=== PATIENT | female | born 1965 | race Caucasian/White ===

== ENCOUNTER 2017-02-21 01:50 | Inpatient (IN) | payer OTHER ==
--- NOTE | ~2017-02-21 | DS ---
Unit #: [id number] #: [id number] Patient: SUHAS YOUNGBLOOD [id number] [address] [place], [place] [address] [id number] MR#: [id number] NAME: SUHAS YOUNGBLOOD ROOM: 228 Age: 51 Sex: F Admission Date: 02/21/2017 : 1965 Discharge Date: 02/27/2017 Attending Physician: Hemalatha Nichols M.D. Primary Care Physician: No Primary Care Physician DISCHARGE SUMMARY ADMISSION DIAGNOSES Diabetic ketoacidosis with abdominal pain and possible hepatic abscess. DISCHARGE DIAGNOSES 1. Diabetic ketoacidosis, resolved. 2. Insulin dependent diabetes mellitus, uncontrolled. 3. Acute respiratory failure, resolved. 4. Chronic obstructive pulmonary disease, resolved. 5. Hepatic lesion secondary to focal steatosis on focal steatosis as per biopsy. 6. Acute right upper extremity internal jugular subclavian and axillary DVT. 7. Chronic pain syndrome. CONSULTANTS Dr. Juarez in surgical consultation. Dr. Coleman in pulmonary consultation. Dr. Flor in infectious disease consultation. Dr. Warren Brian in hematology consultation. DIAGNOSTIC DATA LABORATORY: The patient had a creatinine of 0.7, sodium 139, potassium 4.0. White blood cell count 7.1, hemoglobin 10.4, platelets 223. Blood cultures did not reveal any growth. Sputum culture and sensitivity revealed normal respiratory valeria. Liver biopsy revealed (1) steatosis. IMAGING: Right upper extremity venous Doppler positive for extensive DVT with right internal jugular subclavian and axillary vein. The patient also has right basilic vein thrombophlebitis. CT scan of the abdomen done with and without contrast, which revealed ill-defined hypodense area within the liver which is unchanged in size and appearance. HOSPITAL COURSE The patient is a 51-year-old female who presented to [facility] and was treated for diabetic ketoacidosis. Details are as per admission history and physical. Diabetic ketoacidosis: The patient was treated in the intensive care unit with diabetic ketoacidosis protocol. She responded well and diabetic ketoacidosis has resolved. Unit #: [id number] #: [id number] Patient: SUHAS YOUNGBLOOD Hypodense area in the liver: The patient was seen by infectious disease in consultation. Initially there was concern of hepatic abscess. The patient had a biopsy done, which revealed focal steatosis. Therefore, infectious disease has discontinued antibiotics. Acute right upper extremity DVT: The patient was seen by Dr. Brian in consultation, who has recommended to start her on Eliquis. The patient will require a total of three months of Eliquis. A PICC line was attempted on the right upper extremity. She has a history of DVT one year ago secondary to PICC line as well. Acute respiratory failure: The patient was seen by pulmonary in consultation. They have recommended she can go home. DISCHARGE CONDITOIN Stable. ACTIVITY As tolerated. DISCHARGE MEDICATIONS 1. Dulera 2 puffs b.i.d. 2. Albuterol 2 puffs q.4 h. p.r.n. shortness of air. 3. Cymbalta 60 mg p.o. daily. 4. Zocor 40 mg p.o. at nighttime. 5. Levemir 40 units subcutaneous q.a.m. 6. NovoLog 10 units subcutaneous b.i.d. with meals. 7. Singulair 10 mg p.o. at nighttime. 8. Lortab 7.5 mg p.o. q.4 h. p.r.n. pain, which is the patient's home medication. 9. Potassium 20 mEq p.o. daily. 10. Eliquis 10 mg p.o. b.i.d. for 1 week. Then 5 mg p.o. b.i.d. for 3 months. FOLLOWUP 1. The patient is advised to follow up with primary care physician in one week and have a CBC and BMP done. 2. The patient is advised to follow up with hematology and pulmonary as recommended. 3. The patient was advised to have Accu-Cheks morning and evening and call primary care physician if less than 80 or greater than 350. The plan was discussed in detail with the patient, who showed complete understanding. She was advised to call primary care physician or go to the emergency room if her condition changes. Dictated by... Supa Foster TD: 02/27/2017 12:05 JOB #: [id number] Unit #: [id number] #: [id number] Patient: SUHAS YOUNGBLOOD CC: Kurtis Matthew M.D. Peterson Solis M.D. Ernst Flor M.D. Warren Brian M.D., Ph.D. DISCHARGE SUMMARY Page 1 of 1 X Hemalatha Nichols MD DISCHARGE SUMMARY
--- NOTE | ~2017-02-21 | CT4 ---
[facility] A Service of [facility] & [facility] RADIOLOGY TEXT RESULTS PATIENT: SUHAS YOUNGBLOOD LOCATION: [address] : [birth year] UNIT #: [id number] AGE: [address]: Rob Cardona MD SEX: F ORDER DR: [id number] [facility] [address] [facility]. [place], [place] [address] [id number] I MR#: [id number] Acc #: [id number] NAME: SUHAS YOUNGBLOOD : 1965 SEX: F STUDY DATE/TIME: 02/21/2017 4:15 UNIT: [facility] ROOM: [facility] STUDY DESCRIPTION: CT Abd and Pelv Wo Cont Attending Physician: Rob Cardona M.D. Ordering Physician: Tracy Villegas M.D. MEDICAL IMAGING REPORT This report is preliminary unless electronic signature is present EXAM CT abdomen and pelvis INDICATIONS Nausea, vomiting, and diarrhea for 2 days. Generalized abdominal pain and weakness. TECHNIQUE CT abdomen and pelvis without contrast. Coronal and sagittal reconstructions were obtained. This CT exam was performed with one or more of the following radiation dose reduction techniques: automatic exposure control, adjustment of mA and/or kV according to patient size, and iterative reconstruction. COMPARISON CT abdomen and pelvis dated 11/23/2015 and 07/09/2016. FINDINGS ABDOMEN: There is a new hypodense mass in the inferior aspect of the right hepatic lobe. The mass measures 7.2 x 3.5 x 4 cm. There is some associated capsular retraction. This involves segment 5 and 6 of the liver. No additional liver lesions are identified. Gallbladder is surgically absent. The pancreas, spleen, and adrenal glands are within normal limits. 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 This previously measured 3.2 cm. There are some renal cysts. Largest cyst is off the lower pole left kidney measuring 5.3 cm. No hydronephrosis. The bowel is not dilated. There is no focal inflammatory change in the bowel. The appendix is normal. There is occasional colonic diverticulosis. No evidence of acute diverticulitis. [facility] A Service of [facility] & [facility] RADIOLOGY TEXT RESULTS PATIENT: SUHAS YOUNGBLOOD LOCATION: [facility]- : [birth year] UNIT #: [id number] AGE: [address]: Rob Cardona MD SEX: F ORDER DR: The abdominal aorta is normal in caliber. PELVIS: No pelvic mass. Uterus and ovaries are within normal limits. Bladder is unremarkable. No enlarged pelvic or inguinal lymph nodes. No acute osseous abnormalities. IMPRESSION 1. Development of a new large hypodense mass in the inferior right hepatic lobe. This measures up to 7.2 cm. Given the very rapid development, an hepatic abscess is considered the most likely etiology. A hepatic malignancy or mass is less likely given the time interval of development. In addition, there is some mild fat inflammation adjacent to the capsule of the right side of the liver. Consider a multiphase CT or MRI using the hepatic protocol to further characterize. 2. 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 3. Occasional diverticulosis. No evidence of acute diverticulitis on this study. Dictated by... Carl Quispe M.D. THIS IS AN ELECTRONICALLY VERIFIED REPORT Carl Quispe M.D. at 02/21/2017 9:07 PM [place] TD: 02/21/2017 11:10 JOB #: [id number] MEDICAL IMAGING REPORT Page 1 of 1 COPY
--- NOTE | ~2017-02-21 | CO ---
Unit #: [id number] #: [id number] Patient: SUHAS YOUNGBLOOD [id number] [address] [place], [place] [address] [id number] I MR#: [id number] NAME: SUHAS YOUNGBLOOD ROOM: 228 Age: 51 Sex: F Admission Date: 02/21/2017 : 1965 Attending Physician: Hemalatha Nichols M.D. Primary Care Physician: Primary Care Physician No Consultation Date: 02/22/2017 CONSULTATION REPORT REQUESTING PHYSICIAN . REASON FOR CONSULTATION Possible liver abscess. HISTORY OF PRESENT ILLNESS This is a 51-year-old, white female, with history of diabetes, COPD, chronic pain syndrome, hyperlipidemia, who was admitted for ketoacidosis, presenting symptoms included nausea and vomiting, some abdominal discomfort, but there was never fever or significant leukocytosis. CT scan showed possible 7 cm hepatic lesion thought to be abscess or malignancy. She was started on vancomycin and Zosyn. ID was consulted for further evaluation. IR has attempted to drain this abscess, but they were not successful, they are thinking that this is possibly a solid mass and not an abscess and a repeat CT scan has been scheduled for Monday. The patient does not have any fever, chills, hypotension, or signs of systemic sepsis. Cultures are negative and she is tolerating antibiotics very well. PAST MEDICAL HISTORY Insulin-dependent diabetes for a long time with peripheral neuropathy, hyperlipidemia, COPD, chronic back pain, depression, hyperlipidemia, previous diskectomy, laparoscopic cholecystectomy, bladder repair and bilateral tubal ligation. ALLERGIES Sulfa, erythromycin, and Demerol. HOME MEDICATIONS Reviewed. She was on Levemir, albuterol, Symbicort, Cymbalta, Remeron, Zocor, fenofibrate, Singulair, and Lyrica. In the hospital she is on insulin drip, IV fluids. Her antibiotics include vancomycin and Zosyn. FAMILY HISTORY Positive for coronary artery disease. SOCIAL HISTORY She is . She lives with her daughter. She smokes cigarettes, but denies any alcohol or drug use. SYSTEMIC REVIEW Nausea, vomiting, diarrhea, mild abdominal discomfort, cough. There is no headache, mental status changes, hypotension, tachycardia, rigors, Unit #: [id number] #: [id number] Patient: SUHAS YOUNGBLOOD dysuria, diarrhea, or skin rashes. PHYSICAL EXAMINATION GENERAL: Reveals young white female, who is awake and alert, in no acute distress. VITAL SIGNS: Stable. Temperature is 98, pulse 90, respirations 16, blood pressure 160/82. She has no rash. There is no edema, sats are 100%. Oral hygiene is adequate. LUNGS: Clear to percussion and auscultation. HEART: Sounds normal. There are no murmurs. ABDOMEN: Soft and nontender. There is no rebound or guarding. Bowel sounds normal. NEUROLOGIC: Nonfocal. CENTRAL NERVOUS SYSTEM: Unremarkable. DIAGNOSTIC STUDIES LABORATORY RESULTS: Urinalysis shows 25 wbc's, glucosuria, and leukocyte esterase. The patient has absolutely no symptoms UTI. Amylase and lipase are normal. Hemoglobin A1c is 12. CT of chest x-ray shows no acute infiltrates. CT of the abdomen and pelvis is concerning for hypodense mass in the inferior right hepatic lobe, thought to be hepatic abscess or malignancy. Her sodium is 134, potassium 3.1, chloride 110, CO2 of 18, BUN 7, creatinine 0.9. Liver function tests are normal. Albumin is 2.5. White count is 10.5, hemoglobin 10.4, platelets 254, without any left shift. A repeat CT scan done today, shows the same low attenuation area within the right hepatic lobe. There is no evidence of any enhancement and it either may not be a mass lesion. There is no discrete drainable abscess seen. IMPRESSION Main issue is diabetic ketoacidosis, questionable liver mass does not appear to be an abscess since the patient does not have any fever, chills, signs of systemic sepsis, or leukocytosis. It may be a solid mass or may be a focal steatosis. Recommendation, I agree with current antibiotic regimen until clear diagnosis is made. I will strongly recommend interventional radiology drainage or biopsy to confirm the diagnosis. Further recommendation will follow at that time. Dictated by... Supa Martinez TD: 02/28/2017 11:56 JOB #: [id number] CONSULTATION REPORT Page 1 of 1 X Ernst Flor MD CONSULTATION REPORT
--- NOTE | ~2017-02-21 | CO ---
Unit #: [id number] #: [id number] Patient: SUHAS SOARES [id number] [address] [place], [place] [address] [id number] MR#: [id number] NAME: SUHAS SOARES ROOM: 228 Age: 51 Sex: F Admission Date: 02/21/2017 : 1965 Attending Physician: Hemalatha Nichols M.D. CONSULTATION REPORT REASON FOR CONSULTATION Right upper extremity DVT. HISTORY OF PRESENT ILLNESS Ms. Soares is a very pleasant 51-year-old lady with insulin-dependent diabetes and COPD. She was admitted to the hospital with diabetic ketoacidosis. On the CT scan of the abdomen, she was found to have a hypodense lesion in the liver, which was concerning for abscess versus malignancy. The patient underwent a CT-guided biopsy and it was negative both for infection and malignancy. It was felt to be a focal fatty infiltrative lesion. The patient has been treated with insulin and antibiotics. The attempt was made to place a PICC line in her right upper extremity, which has been now complicated by swelling and pain. On ultrasound evaluation, she was found to have occlusive deep venous thrombosis in the subclavian-axillary veins. The patient has previous history of DVT in the same arm about 2 years ago in a similar situation after an IV placement. The patient was treated with Xarelto anticoagulation for a period of 2 to 3 months. She developed hair loss and then stop taking the medication. PAST MEDICAL HISTORY Insulin-dependent diabetes since age 24, hyperlipidemia, COPD, chronic back and neck pain, depression, hyperlipidemia, diskectomy, history of bladder repair, laparoscopic cholecystectomy. ALLERGIES Sulfa, erythromycin, and Demerol. MEDICATIONS At home; Levemir, NovoLog, albuterol, Symbicort, Cymbalta, Remeron, Zocor, fenofibrate, Singulair, Lortab, Lyrica. FAMILY HISTORY Heart disease. SOCIAL HISTORY The patient lives with her fiance and daughter. She smokes 1 pack per day of tobacco. She has now cut down the number of cigarettes. Does not drink alcohol. REVIEW OF SYSTEMS CONSTITUTIONAL: Patient denies fevers, chills, sweats, and weight changes. EYES: Patient denies any visual symptoms. Unit #: [id number] #: [id number] Patient: SUHAS SOARES EARS, NOSE, AND THROAT: No difficulties with hearing. No symptoms of rhinitis or sore throat. CARDIOVASCULAR: Patient denies chest pains, palpitations, orthopnea, or paroxysmal nocturnal dyspnea. RESPIRATORY: No dyspnea on exertion, no wheezing or cough. GASTROINTESTINAL: No nausea, vomiting, diarrhea, constipation, abdominal pain, hematochezia or melena. GENITOURINARY: No urinary hesitancy or dribbling. No nocturia or urinary frequency. No abnormal urethral discharge. MUSCULOSKELETAL: No myalgias or arthralgias. NEUROLOGIC: No chronic headaches, no seizures. Patient denies numbness, tingling or weakness. PSYCHIATRIC: Patient denies problems with mood disturbance. No problems with anxiety. ENDOCRINE: No excessive urination or excessive thirst. DERMATOLOGIC: Patient denies any rashes or skin changes. ALLERGIC/IMMUNOLOGIC: Denies any symptoms. HEMATOLOGIC/LYMPHATIC: Denies any symptoms. EXTREMITIES: Pain of the right upper extremity and swelling due to DVT. PHYSICAL EXAMINATION GENERAL: Patient appears well developed, well nourished, and healthy. Personality: Pleasant and cooperative. Mental status: Alert and oriented. Stature: ECOG performance score 0. VITAL SIGNS: Patient is afebrile and normotensive. Normal saturation on room air. HEENT: Examination of head, eyes, ears, nose and throat is unremarkable. HEMATOLOGIC/LYMPHATIC: There is no palpable adenopathy in the inguinal, axillary or cervical areas. CARDIOVASCULAR: S1 and S2 regular. Normal rate without any murmurs or gallops. RESPIRATORY: Chest symmetrical, normal, breath sounds equal, bilaterally symmetrical. No rales or rhonchi, and no dullness to percussion. ABDOMEN/GASTROINTESTINAL: Abdomen is soft, nontender, and without palpable masses. No hepatosplenomegaly. EXTREMITIES: Peripheral pulses are normal. There is no edema, cyanosis, clubbing or significant varicosities. NEUROLOGICAL: Patient is alert and oriented x3. Cranial nerves II-XII are grossly intact. Motor strength is 5/5 and equal in all four extremities. Deep tendon reflexes are +2/4 and equal bilaterally. MUSCULOSKELETAL: No evidence of joint swelling, bone tenderness or muscle tenderness is appreciable. SKIN: No lesions or rashes. PSYCHIATRIC: No delusions or hallucinations, no loose associations, no flight of ideas, no tangentiality. Affect is appropriate. No psychomotor slowing or agitation. Eye contact is appropriate. DIAGNOSTIC STUDIES IMAGING STUDIES: Ultrasound Doppler is positive for occlusive thrombosis of internal jugular, axillary, and subclavian veins. DISCUSSION AND DECISION-MAKING Ms. 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 The patient has a similar history in the past about 2 years ago; because of which, she was maintained on anticoagulation with Xarelto. Currently, she is on Lovenox at therapeutic dose, which is quite appropriate. She is requesting a pain medication. I am going to give her Unit #: [id number] #: [id number] Patient: SUHAS SOARES Lortab 10 every 4 to 6 hours as needed for pain. After the symptoms have improved, she could be transitioned to oral anticoagulant with Eliquis. She will be taking 10 mg p.o. b.i.d. for the first 1 week and then changed to 5 mg b.i.d. for a total period of about 3 months. It was discussed with the patient that she should not have any further vascular procedure on the right upper extremity given her history. Dictated by... Warren Brian M.D., Ph.D. BRISA/erin TD: 02/26/2017 22:40 JOB #: [id number] CONSULTATION REPORT Page 1 of 1 X X CONSULTATION REPORT
--- NOTE | ~2017-02-21 | CO ---
Unit #: [id number] #: [id number] Patient: SUHAS YOUNGBLOOD [id number] [address] [place], [place] [address] [id number] MR#: [id number] NAME: SUHAS YOUNGLBOOD. ROOM: [facility] Age: 51 Sex: F Admission Date: 02/21/2017 : 1965 Attending Physician: Rob Cardona M.D. CONSULTATION REPORT HISTORY OF PRESENT ILLNESS This is a 51-year-old lady, she has history of diabetes mellitus, presented with abdominal pain and shortness of breath. The patient found to be in diabetic ketoacidosis. The patient was admitted to intensive care unit, which had a DKA; however, there appears to be a new infiltrate abscess/mass of the liver, 7.2 cm in greatest dimension. The patient states that she has had about 3 weeks of increasing right upper abdomen pain, nausea, and vomiting while at home. Previous laparoscopic cholecystectomy. No other sick contacts. The patient is also coughing a little bit with a little bit of shortness of breath, but nothing is really productive. REVIEW OF SYSTEMS As per the history of present illness, otherwise is negative. PAST MEDICAL HISTORY Significant for insulin-dependent diabetes mellitus, peripheral neuropathy, hyperlipidemia, chronic obstructive pulmonary disease, diskectomy at L4-L5, depression, bladder suspension, laparoscopic cholecystectomy, bilateral tubal ligation. ALLERGIES The patient is allergic to sulfa, erythromycin, and Demerol. HOME MEDICATIONS Includes simvastatin 40 mg as needed, potassium chloride ER 20 mEq as needed, mirtazapine 30 mg at bedtime as needed, montelukast sodium 10 mg scheduled daily, Cymbalta 60 mg daily, Ventolin one puff inhaled daily, Symbicort 160/4.5 two puffs inhaled b.i.d. as needed, hydrocodone/acetaminophen 7.5/325 tablets daily, Levemir 20 units subcu daily as needed, NovoLog 8 units subcu t.i.d. as needed. FAMILY HISTORY Significant for heart disease. The patient lives at home with family. Continues to smoke. No alcohol or recreational drug use. No occupational exposures. PHYSICAL EXAMINATION VITAL SIGNS: Temperature is 97.4, pulse 103, respiratory rate 18, blood pressure 125/56. GENERAL: The patient is awake, sleeping quietly, in no respiratory distress. HEENT: Head is normocephalic and atraumatic. Pupils are equally round Unit #: [id number] #: [id number] Patient: SUHAS YOUNGBLOOD and reactive to light. Extraocular movements are intact. NECK: Shows no accessory muscle use. CHEST: Shows decreased breath sounds bilaterally. CARDIOVASCULAR: Regular rate. No gallop. ABDOMEN: Soft, nontender, and nondistended. EXTREMITIES: Shows no evidence of edema. DIAGNOSTIC STUDIES LABORATORY RESULTS: ABG; pH 7.29, pCO2 21, and pO2 of 54 on room air. BUN and creatinine 10/1.1, bicarb 13, potassium 3.3, the initial glucose was 689. ASSESSMENT AND PLAN 1. Diabetes. 2. Diabetic ketoacidosis. The patient is being treated with diabetic ketoacidosis protocol. Continue hydration. We will see if IR can do a CT-guided biopsy of the liver mass. 3. Possible pneumonia. The patient does not have a significant infiltrate on chest x-ray. She is on appropriate antibiotics, which should cover pneumonia as well. We will do a nebulizer treatment. Thank you very much. Please page me at [phone] if you have any questions. Dictated by... Supa Crowell/erin TD: 02/23/2017 02:14 JOB #: [id number] CONSULTATION REPORT Page 1 of 1 X Naman Coleman MD X CONSULTATION REPORT
--- NOTE | ~2017-02-21 | CT5 ---
[facility] A Service of [facility] RADIOLOGY TEXT RESULTS PATIENT: SUHAS YOUNGBLOOD LOCATION: [address] : [birth year] UNIT #: [id number] AGE: [address]: Rob Cardona MD SEX: F ORDER DR: [id number] [facility] [address] [facility] [address]. [place], [place] [address] [id number] I MR#: [id number] Acc #: [id number] NAME: SUHAS YOUNGBLOOD : 1965 SEX: F STUDY DATE/TIME: 02/22/2017 8:26 UNIT: [facility] ROOM: [facility] STUDY DESCRIPTION: CT Abdomen W Cont Attending Physician: Rob Cardona M.D. Ordering Physician: Uriel Juarez M.D. Primary Care Physician: Primary Care Physician No MEDICAL IMAGING REPORT This report is preliminary unless electronic signature is present EXAM Multiphase liver CT INDICATIONS Abnormal CT of the abdomen and pelvis which was performed yesterday for nausea, vomiting, diarrhea and generalized abdominal pain since February 20, 2017. This demonstrated a low attenuation area within the right hepatic lobe measuring 7.2 x 3.4 cm which was considered to be suspicious for hepatic abscess. This exam was requested for additional characterization. TECHNIQUE Axial arterial and portal venous phase imaging was performed through the liver followed by venous phase imaging through the abdomen and pelvis and 5-minute delayed-phase imaging through the abdomen pelvis. This CT exam was performed with one or more of the following radiation dose reduction techniques: automatic exposure control, adjustment of mA and/or kV according to patient size, and iterative reconstruction. FINDINGS Images through the lung bases show the development of some interval, the dependent atelectasis when compared to the prior study from yesterday. Patient is again noted to have an area of heterogeneous low attenuation within the right hepatic lobe. This remains low attenuation on all sequences. I really do not see any enhancing elements to suggest that this is a mass, but I also do not see any discrete drainable fluid collections. There is some capsular retraction seen on today's study which is new when compared to the prior exam as the possibility of a mass lesion is not completely excluded. There is also some stranding seen along the right hepatic margin as was previously discussed. Again this appearance can be seen in both neoplastic and infectious or inflammatory processes. No adenopathy is seen within the abdomen. There is no ascites. Gallbladder is surgically absent. Stomach and proximal small bowel are within normal limits, as are the adrenal glands and pancreas. This patient has a large [facility] A Service of [facility] RADIOLOGY TEXT RESULTS PATIENT: SUHAS YOUNGBLOOD LOCATION: [facility] CICCU2-07 : [birth year] UNIT #: [id number] AGE: [address]: Rob Cardona MD SEX: F ORDER DR: cyst arising from the inferior pole of the right kidney and there is also an angiomyolipoma arising from the superior pole of the left kidney. This has increased in size over time, previously measuring 3.2 cm in transverse dimensions and is now 3.8 cm in an AP dimension; this now measures up to 4.1 cm. Urologic consultation is suggested. There is a small fat-containing umbilical hernia. Visualized portions of the uterus and urinary bladder appear unremarkable. This patient has colonic diverticulosis without any convincing evidence of diverticulitis on today's study. The appendix is visualized and is within normal limits. No discrete drainable fluid collections are seen within the abdomen. Review of bony windows does not demonstrate any aggressive osseous abnormalities. Patient is noted to have hepatomegaly with the liver measuring up to 19.5 cm in craniocaudal dimensions. IMPRESSION 1. Previously identified low attenuation area within the right hepatic lobe is again seen. It really does not show any significant areas of enhancement on any of the sequences. This would argue against any mass lesion, however no discrete drainable abscess is seen. I still favor that this may reflect developing abscess, but again it is not drainable at the current time. There is some capsular retraction noted on today's study which is new when compared to July 2016 which would be more suggestive of a neoplastic process and again underlying mass lesion is not excluded. Short-term followup exam is recommended preferably a single phase contrast enhanced exam. Interval decrease in the size of this area or development of fluid collections within this area would confirm that this is benign. No adenopathy or ascites is seen within the abdomen. 2. Hepatomegaly. 3. This patient has an enlarging angiomyolipoma arising from the superior pole of the left kidney. In maximum dimensions this measures up to 4.1 cm. Again it has increased in size when compared to the exam from July 2016. Urologic consultation is suggested. 4. Large inferior pole right renal cyst. 5. Changes of prior cholecystectomy. 6. Colonic diverticulosis without evidence of diverticulitis. Dictated by... Zunilda Blanco M.D. THIS IS AN ELECTRONICALLY VERIFIED REPORT Zunilda Blanco M.D. at 02/22/2017 4:55 PM AFF/to TD: 02/22/2017 13:47 JOB #: [id number] MEDICAL IMAGING REPORT [facility] A Service of [facility] & [facility] RADIOLOGY TEXT RESULTS PATIENT: SUHAS YOUNGBLOOD LOCATION: [address] : [birth year] UNIT #: [id number] AGE: [address]: Rob Cardona MD SEX: F ORDER DR: Page 1 of 1 COPY
--- NOTE | ~2017-02-21 | A ---
[facility] Nutrition Therapy DATE: 02/22/17 Patient: SUHAS YOUNGBLOOD Physician: CLAUDIA Address: [address] Room/Bed: [address], Zip: [place] [address] Admit Date: 02/21/17 Date of : [birth year] Height: 5 10 Weight: 211 96 NUTRITIONAL ASSESSMENT: REASON: NO DIET ORDER IN ICU + DX PT IS 51 Y.O. FEMALE ADMITTED FOR ABD PAIN, DKA PMH: DM SINCE AGE 24 (PER CHART), CVA, SMOKER, COPD, PERIPHERAL NEUROPATHY, PREVIOUS DKA, HTN, DYSLIPIDEMIA Anthropometrics: 5'10", WT: 220# (PER PT) (100 KG), BMI: 31.6, 150# IBW, 147%IBW Labs: GLU: 115, BUN: 7, CA+:7.6, ALB: 2.5, K+:3.1, NA+:134, M.5, PHOS: 2.0, A1c: 12.2 (REFLECTS POOR GLUCOSE MANAGEMENT), AMYLASE: 13 Meds: IV FLUIDS, NACL, ZOFRAN, PEPCID, MAG SULFATE, KCL, REGLAN I/O & Bowel function: 2507/1203, 3 BMs NOTED Skin Integrity: NO KNOWN SKIN ISSUES Estimated Nutrition Needs: INCREASED NEEDS 2' CURRENT CONDITION, UNINTENTIONAL WEIGHT LOSS NOTED Assessment: CHART REVIEWED AND EVENTS NOTED. PT SEEN FOR NO DIET ORDER IN ICU + DX. PT REPORTS DECREASED PO INTAKE 2' DECREASED APPETITE PAST SEVERAL DAYS. PT ADDS "APPETITE GOES UP AND DOWN". PT REPORTS LOSING ~40# SINCE LAST JULY 2016/15% WEIGHT LOSS IN PAST [address] ENCOURAGED SLOW GRADUAL PO INTAKE ONCE DIET ADVANCES, PT AGREED. RD ALSO PROVIDED WRITTEN AND VERBAL CC DIET EDUCATION. PT REPORTS MAKING HEALTHIER CHANGES (BAKED CHICKEN, SALADS AND DRINKING MORE WATER). PT DEMONSTRATED UNDERSTANDING OF THE TOPIC. PT REPORTED NO DIET QUESTIONS AT THIS TIME. RD TO FOLLOW. SEE RECOMMENDATIONS BELOW. OF NOTE, NO DIET ORDER 2' PROCEDURE SCHEDULED TODAY. PLANS IN PLACE TO ADVANCE DIET LATER TODAY. Dx: INADEQUATE PROTEIN-ENERGY INTAKE R/T PMH, DECREASED APPETITE AEB PT REPORT ABOVE. -IMPAIRED GYMCEMIC CONTROL R/T DX, PMH AEB ELEVATED BLOOD SUGAR LEVELS, A1c OF 12.2. Intervention: 1. NO DIET ORDER 2. RD PROVIDED DIET EDUCATION Monitoring, Evaluation and Goals: 1. ORAL INTAKE; ADVANCE DIET AND CONSUME >50% OF MEALS W/NO C/O N/V/D 2. WEIGHTS; PREVENT FURTHER UNINTENTIONAL WEIGHT LOSS; PROMOTE GRADUAL WEIGHT LOSS [facility] Nutrition Therapy DATE: 02/22/17 Patient: SUHAS YOUNGBLOOD Physician: CLAUDIA Address: [address] [place] [address] Room/Bed: [address], Zip: [place] [address] Admit Date: 02/21/17 Date of : [birth year] Height: 5 10 Weight: 211 96 3. LABS; WNL: GLU, LYTES (K+, PHOS, MG) MONITOR: -DIET ADVANCEMENT -PO INTAKE/APPETITE -LABS -EDUCATION NEEDS Recommendations: 1. ONCE MEDICALLY FEASIBLE, ADVANCE DIET TOLERATED TO CC 2' PMH, DX 2. PLEASE ORDER STRAWBERRY OR VANILLA GLUCERNA SHAKES BID W/MEALS ONCE DIET ADVANCES 3. ENCOURAGE ADEQUATE PO INTAKE 4. CONSULT RD IF FURTHER DIET EDUCATION REQUESTED RD WILL F/U PER PROTOCOL PT IS MODERATELY COMPROMISED Respectfully, JACY BRUNO MS, RD, LD [employer] and Nutrition[employer] Services [facility] cc: client file
--- NOTE | ~2017-02-21 | CT6 ---
[facility] A Service of [facility] RADIOLOGY TEXT RESULTS PATIENT: SUHAS YOUNGBLOOD LOCATION: [facility] 228-01 : [birth year] UNIT #: [id number] AGE: [address]: Hemalatha Nichols MD SEX: F ORDER DR: [id number] [place], [place] [address] [id number] I MR#: [id number] Acc #: [id number] NAME: SUHAS YOUNGBLOOD : 1965 SEX: F STUDY DATE/TIME: 02/24/2017 10:31 UNIT: [facility] ROOM: [facility] STUDY DESCRIPTION: CT Abdomen WWo Cont Attending Physician: Hemalatha Nichols M.D. Ordering Physician: Marii Brian M.D. Primary Care Physician: Primary Care Physician No MEDICAL IMAGING REPORT This report is preliminary unless electronic signature is present EXAM CT of the abdomen without and with contrast INDICATION Follow up liver lesion. TECHNIQUE CT of the abdomen was performed before and after the administration of IV contrast. Coronal and sagittal reformatted images were obtained. Comparison is made with 02/22/2017. This CT examination was performed with one or more of the following radiation dose reduction techniques: automatic exposure control, adjustment of mA and/or kV according to patient size, and iterative reconstruction. FINDINGS There is minimal atelectasis within the lung bases. Redemonstrated within the periphery of the right lobe of the liver is an ill-defined hypodensity associated with some capsular retraction. Overall it is unchanged in size and appearance. Again differential diagnosis includes developing abscess versus possible underlying mass. Cholecystectomy. Focal fatty infiltration of the liver adjacent to the falciform. The spleen is unremarkable. Stable angiomyolipoma within the left kidney. Stable cyst in the right kidney. The adrenal glands are unremarkable. The pancreas is unremarkable. Bone windows are unremarkable. IMPRESSION There has been no change since the previous study. The ill-defined hypodense area within the liver is unchanged in size and appearance. Again differential diagnosis includes developing abscess versus underlying mass. Dictated by... [facility] A Service of [facility] RADIOLOGY TEXT RESULTS PATIENT: SUHAS YOUNGBLOOD LOCATION: [facility] [address] : [birth year] UNIT #: [id number] AGE: [address]: Hemalatha Nichols MD SEX: F ORDER DR: Teo De La Cruz M.D. THIS IS AN ELECTRONICALLY VERIFIED REPORT Teo De La Cruz M.D. at 02/25/2017 9:47 AM TERESA/jorge TD: 02/24/2017 14:19 JOB #: [id number] MEDICAL IMAGING REPORT Page 1 of 1 COPY
--- NOTE | ~2017-02-21 | DS ---
Unit #: [id number] #: [id number] Patient: SUHAS YOUNGBLOOD [id number] [address] [place], [place] [address] [id number] I MR#: [id number] NAME: SUHAS YOUNGBLOOD. ROOM: 228 Age: 51 Sex: F Admission Date: 02/21/2017 : 1965 Discharge Date: 02/27/2017 Attending Physician: Hemalatha Nichols M.D. Primary Care Physician: No Primary Care Physician DISCHARGE SUMMARY ADDENDUM ADMISSION DIAGNOSES Diabetic ketoacidosis with abdominal pain and possible hepatic abscess. DISCHARGE DIAGNOSES 1. Diabetic ketoacidosis, resolved. 2. Insulin dependent diabetes mellitus, uncontrolled. 3. Acute respiratory failure, resolved. 4. Chronic obstructive pulmonary disease, resolved. 5. Hepatic lesion secondary to focal steatosis on focal steatosis as per biopsy. 6. Acute right upper extremity internal jugular subclavian and axillary DVT. 7. Chronic pain syndrome. CONSULTANTS Dr. Juarez in surgical consultation. Dr. Coleman in pulmonary consultation. Dr. Flor in infectious disease consultation. Dr. Warren Brian in hematology consultation. DIAGNOSTIC DATA LABORATORY: The patient had a creatinine of 0.7, sodium 139, potassium 4.0. White blood cell count 7.1, hemoglobin 10.4, platelets 223. Blood cultures did not reveal any growth. Sputum culture and sensitivity revealed normal respiratory valeria. Liver biopsy revealed (1) steatosis. IMAGING: Right upper extremity venous Doppler positive for extensive DVT with right internal jugular subclavian and axillary vein. The patient also has right basilic vein thrombophlebitis. CT scan of the abdomen done with and without contrast, which revealed ill-defined hypodense area within the liver which is unchanged in size and appearance. HOSPITAL COURSE The patient is a 51-year-old female who presented to [facility] and was treated for diabetic ketoacidosis. Details are as per admission history and physical. Diabetic ketoacidosis: The patient was treated in the intensive care unit Unit #: [id number] #: [id number] Patient: SUHAS YOUNGBLOOD with diabetic ketoacidosis protocol. She responded well and diabetic ketoacidosis has resolved. Hypodense area in the liver: The patient was seen by infectious disease in consultation. Initially there was concern of hepatic abscess. The patient had a biopsy done, which revealed focal steatosis. Therefore, infectious disease has discontinued antibiotics. Acute right upper extremity DVT: The patient was seen by Dr. Brian in consultation, who has recommended to start her on Eliquis. The patient will require a total of three months of Eliquis. A PICC line was attempted on the right upper extremity. She has a history of DVT one year ago secondary to PICC line as well. Acute respiratory failure: The patient was seen by pulmonary in consultation. They have recommended she can go home. DISCHARGE CONDITOIN Stable. ACTIVITY As tolerated. DISCHARGE MEDICATIONS 1. Dulera 2 puffs b.i.d. 2. Albuterol 2 puffs q.4 h. p.r.n. shortness of air. 3. Cymbalta 60 mg p.o. daily. 4. Zocor 40 mg p.o. at nighttime. 5. Levemir 40 units subcutaneous q.a.m. 6. NovoLog 10 units subcutaneous b.i.d. with meals. 7. Singulair 10 mg p.o. at nighttime. 8. Lortab 7.5 mg p.o. q.4 h. p.r.n. pain, which is the patient's home medication. 9. Potassium 20 mEq p.o. daily. 10. Eliquis 10 mg p.o. b.i.d. for 1 week. Then 5 mg p.o. b.i.d. for 3 months. FOLLOWUP 1. The patient is advised to follow up with primary care physician in one week and have a CBC and BMP done. 2. The patient is advised to follow up with hematology and pulmonary as recommended. 3. The patient was advised to have Accu-Cheks morning and evening and call primary care physician if less than 80 or greater than 350. The plan was discussed in detail with the patient, who showed complete understanding. She was advised to call primary care physician or go to the emergency room if her condition changes. Dictated by... Supa Foster TD: 02/27/2017 12:05 JOB #: [id number] Unit #: [id number] #: [id number] Patient: SUHAS YOUNGBLOOD ADDENDUM I discussed with the patient in detail, who stated that she was taking Levemir 60 units at home and 30 units of NovoLog with each meal. As the patient's sugars are currently low I will decrease her Levemir to 50 units and will continue on the NovoLog as the patient is very adamant to continue 30 units with each meal. She states that she was not watching her diet at home, but she will watch it better, and she will do her Accu-Cheks as directed. The patient does not want to have a diabetic ketoacidosis again. The patient was advised to call her primary care physician or go to the emergency room if her condition changes. Dictated by... Supa Foster/atul TD: 02/27/2017 12:28 JOB #: [id number] CC: Supa Sanders M.D. Khuda D. Khan, M.D., Ph.D. Peterson Solis M.D. Gayatri/invision Please Delete DISCHARGE SUMMARY Page 1 of 1 X Hemalatha Nichols MD X DISCHARGE SUMMARY
--- NOTE | ~2017-02-21 | CR72 ---
[facility] A Service of [facility] RADIOLOGY TEXT RESULTS PATIENT: SUHAS YOUNGBLOOD LOCATION: [address] : [birth year] UNIT #: [id number] AGE: [address]: Rob Cardona MD SEX: F ORDER DR: [id number] [facility] [address] [facility]. [place], [place] [address] [id number] I MR#: [id number] Acc #: [id number] NAME: SUHAS YOUNGBLOOD : 1965 SEX: F STUDY DATE/TIME: 02/22/2017 4:20 UNIT: [facility] ROOM: [facility] STUDY DESCRIPTION: CR Chest Single View Portable Attending Physician: Rob Cardona M.D. Ordering Physician: Astrid Coleman M.D. Primary Care Physician: Primary Care Physician No MEDICAL IMAGING REPORT This report is preliminary unless electronic signature is present EXAM Single view chest INDICATION Respiratory failure. 2-day duration. FINDINGS Single portable AP view of the chest compared to 02/21/2017. Left PICC terminates over the SVC. Heart and mediastinal contours normal. Lungs are clear. IMPRESSION Left PICC terminates over the SVC. Dictated by... Carl Quispe M.D. THIS IS AN ELECTRONICALLY VERIFIED REPORT Carl Quispe M.D. at 02/22/2017 11:21 PM OREN/jorge TD: 02/22/2017 06:03 JOB #: [id number] MEDICAL IMAGING REPORT Page 1 of 1 COPY
--- NOTE | ~2017-02-21 | CR72 ---
[facility] A Service of [facility] & [facility] RADIOLOGY TEXT RESULTS PATIENT: SUHAS YOUNGBLOOD LOCATION: [address] : [birth year] UNIT #: [id number] AGE: [address]: Rob Cardona MD SEX: F ORDER DR: [id number] [facility] [address] [place], [place] [address] [id number] I MR#: [id number] Acc #: [id number] NAME: SUHAS YOUNGBLOOD : 1965 SEX: F STUDY DATE/TIME: 02/21/2017 3:24 UNIT: [facility] ROOM: [facility] STUDY DESCRIPTION: CR Chest Single View Portable Attending Physician: Rob Cardona M.D. Ordering Physician: Tracy Villegas M.D. Primary Care Physician: Primary Care Physician No MEDICAL IMAGING REPORT This report is preliminary unless electronic signature is present EXAM Single view of the chest INDICATIONS Shortness of air for two days. FINDINGS Single portable AP view of the chest compared to 07/23/2016. Heart and mediastinal contours are normal. Lungs are clear. IMPRESSION Negative chest radiograph. Dictated by... Carl Quispe M.D. THIS IS AN ELECTRONICALLY VERIFIED REPORT Carl Quispe M.D. at 02/21/2017 9:07 PM OREN/nai TD: 02/21/2017 06:09 JOB #: [id number] MEDICAL IMAGING REPORT Page 1 of 1 COPY
--- NOTE | ~2017-02-21 | CT134 ---
[facility] A Service of [facility] RADIOLOGY TEXT RESULTS PATIENT: SUHAS YOUNGBLOOD LOCATION: [facility] : [birth year] UNIT #: [id number] AGE: [address]: Hemalatha Nichols MD SEX: F ORDER DR: [id number] [facility]. [place], [place] [address] [id number] I MR#: [id number] Acc #: [id number] NAME: SUHAS YOUNGBLOOD. : 1965 SEX: F STUDY DATE/TIME: 02/24/2017 12:31 UNIT: [facility] ROOM: [facility] STUDY DESCRIPTION: CT Guide Attending Physician: Hemalatha Nichols M.D. Ordering Physician: Raymond Rutledge M.D. MEDICAL IMAGING REPORT This report is preliminary unless electronic signature is present EXAM CT-guided liver biopsy INDICATIONS Abnormal hypodense lesion within the liver which is suspicious for either abscess or possible mass. Medications, 3 mg Versed IV and 100 mcg of fentanyl IV were administered. Conscious sedation time of 35 minutes was monitored by appropriately credentialed radiology nursing staff. The risks, benefits, and alternatives of the procedure were discussed with the patient and informed consent was obtained. In the procedure room, a time out was performed confirming correct patient and procedure. All elements of maximum sterile-barrier technique utilized according to guidelines appropriate for the procedure. TECHNIQUE/FINDINGS CT scan was performed demonstrating the ill-defined hypodense area within the periphery of the right lobe of the liver with capsular retraction. The overlying skin was prepped and draped in the usual sterile fashion. 1% lidocaine utilized to anesthetize the skin and underlying subcutaneous tissues. Next under CT guidance, a 17-gauge guide needle was advanced into the hypodense area. There was not returned of any purulent fluid. Therefore, two 18-gauge core biopsies were obtained and sent to pathology. Needle was removed and a sterile dressing was applied. The tract was dressed with Gelfoam during removal of the needle. IMPRESSION Technically successful CT-guided liver lesion biopsy. [facility] A Service of [facility] RADIOLOGY TEXT RESULTS PATIENT: SUHSA YOUNGBLOOD LOCATION: [facility] 228-01 : [birth year] UNIT #: [id number] AGE: [address]: Hemalatha Nichols MD SEX: F ORDER DR: Dictated by... Teo De La Cruz M.D. THIS IS AN ELECTRONICALLY VERIFIED REPORT Teo De La Cruz M.D. at 02/25/2017 9:48 AM ARS/pcl TD: 02/24/2017 20:49 JOB #: [id number] MEDICAL IMAGING REPORT Page 1 of 1 COPY
--- NOTE | ~2017-02-21 | XA166 ---
[facility] A Service of [facility] & [facility] RADIOLOGY TEXT RESULTS PATIENT: SUHAS YOUNGBLOOD LOCATION: [address] : [birth year] UNIT #: [id number] AGE: [address]: Rob Cardona MD SEX: F ORDER DR: [id number] [facility] [address] [place], [place] [address] [id number] I MR#: [id number] Acc #: [id number] NAME: SUHAS YOUNGBLOOD : 1965 SEX: F STUDY DATE/TIME: 02/21/2017 13:19 UNIT: [facility] ROOM: [facility] STUDY DESCRIPTION: XA PICC Line Placement WO Port Attending Physician: Rob Cardona M.D. Ordering Physician: Emma Palm M.D. Primary Care Physician: Primary Care Physician No MEDICAL IMAGING REPORT This report is preliminary unless electronic signature is present PROCEDURE Attempted right arm PICC line placement and successful left arm PICC line placement. INDICATION 51-year-old female who is in diabetic ketoacidosis and needs central access. The fluoro time was 5.8 minutes. The reference air kerma was 19 mGy. Risks, benefits and alternatives of the procedure were discussed with the patient and informed consent was obtained. In the procedure room a timeout was performed confirming correct patient and procedure. All elements of maximum sterile-barrier technique utilized according guidelines appropriate for the procedure. TECHNIQUE/FINDINGS Ultrasound of the right extremity was performed. The basilic vein was patent and compressible and images saved. Next, using full standard sterile-barrier technique including sterile caps, gowns, gloves, masks, drapes, 2% Chlorhexidine for cutaneous antisepsis, and hand hygiene, real-time sterile ultrasound guidance was utilized with sterile gel and sterile prep, and the right basilic vein was accessed using an 21-gauge micropuncture needle. Through this access and under fluoroscopic guidance a sheath was advanced into the right basilic vein. Next a guidewire was manipulated centrally however, I was unable to advance the guidewire into the SVC likely due to chronic occlusion. I attempted this with both an 0.18 guidewire and with an 0.35 stiff Glidewire and guide catheter. Patient did report that she has had multiple right upper extremity PICC lines in the past. Therefore, the guidewire, catheter, and sheath were removed from the right basilic vein and hemostasis was achieved with manual pressure. [facility] A Service of [facility] RADIOLOGY TEXT RESULTS PATIENT: SUHAS YOUNGBLOOD LOCATION: [facility]2-07 : [birth year] UNIT #: [id number] AGE: [address]: Rob Cardona MD SEX: F ORDER DR: Next, attention was turned left upper extremity. Ultrasound was performed and the left basilic vein was patent and compressible and image was saved. Next, using full standard sterile barrier technique including sterile caps, gowns, gloves, masks, drapes, 2% Chlorhexidine for cutaneous antisepsis and hand hygiene, real-time sterile ultrasound guidance was utilized with sterile gel and sterile probe cover and the left basilic vein was punctured using a 21-gauge micropuncture needle. Through this access and under fluoroscopic guidance, an 0.18 guidewire was advanced into the SVC. The needle was exchanged for a peel-away sheath. The PICC line was measured and cut to length and was advanced over the sheath. Sheath was peeled away. Final spot image was taken demonstrating good position of the PICC line within the lower SVC. This is a 46 cm double-lumen 5-Faroese left arm PICC line. The patient tolerated the procedure well without immediate complications. IMPRESSION 1. 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 Attempted right arm PICC line placement was unsuccessful. 2. Successful left arm PICC line placement as described. 3. If the patient needs PICC lines in the future, suggest using the left upper extremity. Dictated by... Teo De La Cruz M.D. THIS IS AN ELECTRONICALLY VERIFIED REPORT Teo De La Cruz M.D. at 02/22/2017 7:45 AM TERESA/juan carlos TD: 02/21/2017 22:12 JOB #: [id number] MEDICAL IMAGING REPORT Page 1 of 1 COPY
--- NOTE | ~2017-02-21 | US140 ---
[facility] A Service of [facility] & [facility] RADIOLOGY TEXT RESULTS PATIENT: SUHAS YOUNGBLOOD LOCATION: [facility] 228-01 : [birth year] UNIT #: [id number] AGE: [address]: Hemalatha Nichols MD SEX: F ORDER DR: [id number] [facility] [address] [place], [place] [address] [id number] I MR#: [id number] Acc #: [id number] NAME: SUHAS YOUNGBLOOD : 1965 SEX: F STUDY DATE/TIME: 02/25/2017 15:54 UNIT: [facility] ROOM: [facility] STUDY DESCRIPTION: US UE Veins Unilat or Ltd Stdy Attending Physician: Hemalatha Nichols M.D. Ordering Physician: Diana Mckenzie M.D. MEDICAL IMAGING REPORT This report is preliminary unless electronic signature is present EXAM Right upper extremity venous duplex, 02/25/2017 HISTORY Right upper extremity pain and swelling for 1 day with history of previous deep vein thrombosis. FINDINGS Ferrell-scale images of the right upper extremity were obtained as well as Doppler waveform spectral analysis and color flow Doppler imaging. The examination is abnormal demonstrating occlusive thrombus in the right internal jugular vein as well as right subclavian and axillary veins. Normal blood flow and compressibility is seen in the right brachial and cephalic veins. There is occlusive thrombus in the right basilic vein characteristic of superficial thrombophlebitis. IMPRESSION 1. Abnormal examination demonstrating occlusive deep vein thrombosis in the right internal jugular vein, right subclavian vein and right axillary vein. 2. Occlusive thrombus in the right basilic vein characteristic of superficial thrombophlebitis. STAT * RESULT Dictated by... Roosevelt Knowles M.D. THIS IS AN ELECTRONICALLY VERIFIED REPORT Roosevelt Knowles M.D. at 02/26/2017 2:11 PM DARRYL/sammy TD: 02/25/2017 16:39 [facility] A Service of [facility] & [facility] RADIOLOGY TEXT RESULTS PATIENT: SUHAS YOUNGBLOOD [id number] [birth year] UNIT #: [id number] AGE: [address]: Hemalatha Nichols MD SEX: F ORDER DR: JOB #: [id number] MEDICAL IMAGING REPORT Page 1 of 1 COPY
--- NOTE | ~2017-02-21 | CO ---
Unit #: [id number] #: [id number] Patient: SUHAS SOARSE 911655 [address] [place], [place] [address] [id number] I MR#: [id number] NAME: SUHAS SOARES. ROOM: [facility] Age: 51 Sex: F Admission Date: 02/21/2017 : 1965 Attending Physician: Rob Cardona M.D. Consultation Date: 02/21/2017 CONSULTATION REPORT HISTORY OF PRESENT ILLNESS Ms. Soares is a 51-year-old female with diabetes who presented to the emergency room with abdominal pain and shortness of breath. She was found to be in diabetic ketoacidosis, and she was admitted to the intensive care unit. The medical service is reversing her DKA, but on CT scan, there is a new mass in the liver measuring 7.2 cm in greatest dimension in the right lobe consistent with possible hepatic abscess. The patient states that she has had about three weeks of increasing right upper quadrant pain associated with nausea and vomiting while at home. She has had a previous laparoscopic cholecystectomy. PAST MEDICAL HISTORY 1. Insulin-dependent diabetes. 2. Peripheral neuropathy. 3. Hyperlipidemia. 4. Chronic obstructive pulmonary disease. 5. Diskectomy at L4-5. 6. Depression. 7. Bladder suspension. 8. Laparoscopic cholecystectomy. 9. Bilateral tubal ligation. ALLERGIES Sulfa, erythromycin, and Demerol. HOME MEDICATIONS 1. Levemir. 2. NovoLog. 3. Albuterol. 4. Symbicort. 5. Cymbalta. 6. Remeron. 7. Zocor. 8. Fenofibrate. 9. Singulair. 10. Lortab. 11. Lyrica. FAMILY HISTORY Heart disease. SOCIAL HISTORY Lives at home with family. She continues to smoke. Denies use of alcohol or recreational drugs. Unit #: [id number] #: [id number] Patient: SUHAS SOARES REVIEW OF SYSTEMS Nausea and vomiting but no hematemesis, hematochezia, melena, abdominal pain, fever, or chills. PHYSICAL EXAMINATION VITAL SIGNS: Temperature is 97.4, pulse 103, respirations 18, and blood pressure 125/56. GENERAL: She is awake, alert, and oriented. HEENT: Unremarkable. CARDIAC: Regular. LUNGS: Clear. ABDOMEN: She guards in the right upper quadrant. EXTREMITIES: No edema. NEUROLOGIC: Grossly intact. DIAGNOSTIC STUDIES LABORATORY: Most recent blood gas showed a pH of 7.29, PCO2 of 21, and PO2 of 54, and that was on room air. Chemistry showed a glucose of 689, BUN and creatinine 9 and 1, sodium 129, potassium 6, chloride 108, CO2 of 13, calcium 7, phosphorus 1.9, and magnesium 1.8. Amylase and lipase normal. Liver chemistries unremarkable. Beta hydroxybutyrate 7.54. Hemoglobin A1c 12.2. White count 9900, hemoglobin 13.2, and platelets 337,000. Urinalysis shows 25-50 white cells. IMAGING: CT scan shows a new mass consistent with abscess measuring 7.2 cm in greatest dimension. She has an enlarging left renal angiomyolipoma and diverticulosis without evidence of diverticulitis. ASSESSMENT AND PLAN A 51-year-old female presents in diabetic ketoacidosis. She had a CT consistent with a possible hepatic abscess. Patient is in the intensive care unit being hydrated and having her diabetic ketoacidosis resolved. However, she does have a lesion consistent with possible abscess. It appears amenable to percutaneous drainage, and we will ask Interventional Radiology to place a drain and send the fluid for culture and sensitivity. Should she fail to respond to percutaneous drainage, surgical drainage is always a possibility. Dictated by... Supa Torres/paul TD: 02/21/2017 19:44 JOB #: [id number] CONSULTATION REPORT Page 1 of 1 X Uriel Juarez MD X CONSULTATION REPORT
--- NOTE | ~2017-02-21 | CR63 ---
[facility] A Service of [facility] & [facility] RADIOLOGY TEXT RESULTS PATIENT: SUHAS YOUNGBLOOD LOCATION: [facility] 228 : [birth year] UNIT #: [id number] AGE: [address]: Hemalatha Nichols MD SEX: F ORDER DR: [id number] [facility] [address] [place], [place] [address] [id number] I MR#: [id number] Acc #: [id number] NAME: SUHAS YOUNGBLOOD : 1965 SEX: F STUDY DATE/TIME: 02/27/2017 8:47 UNIT: A ROOM: [facility] STUDY DESCRIPTION: CR Chest 2 View Attending Physician: Hemalatha Nichols M.D. Ordering Physician: Hemalatha Nichols M.D. Primary Care Physician: Primary Care Physician No MEDICAL IMAGING REPORT This report is preliminary unless electronic signature is present EXAM PA and lateral chest INDICATIONS Shortness of breath since 02/21 COMPARISON 02/25/2017 FINDINGS The right perihilar opacity has resolved. No new infiltrates. PICC line is stable. IMPRESSION Previously noted right perihilar opacity has resolved. No new infiltrate. Dictated by... Teo De La Cruz M.D. THIS IS AN ELECTRONICALLY VERIFIED REPORT Teo De La Cruz M.D. at 03/01/2017 7:48 AM TERESA/adeline TD: 02/27/2017 14:00 JOB #: [id number] MEDICAL IMAGING REPORT Page 1 of 1 COPY
--- NOTE | ~2017-02-21 | CR72 ---
[facility] A Service of [facility] & [facility] & [facility] RADIOLOGY TEXT RESULTS PATIENT: SUHAS YOUNGBLOOD LOCATION: A : [birth year] UNIT #: [id number] AGE: [address]: Hemalatha Nichols MD SEX: F ORDER DR: [id number] [facility] [address]. [place], [place] [address] [id number] I MR#: [id number] Acc #: [id number] NAME: SUHAS YOUNGBLOOD : 1965 SEX: F STUDY DATE/TIME: 02/25/2017 6:16 UNIT: [facility] ROOM: [facility] STUDY DESCRIPTION: CR Chest Single View Portable Attending Physician: Hemalatha Nichols M.D. Ordering Physician: Astrid Coleman M.D. Primary Care Physician: No Primary Care Physician MEDICAL IMAGING REPORT This report is preliminary unless electronic signature is present EXAM Portable AP view of chest COMPARISON February 22, 2017, February 21, 2017, July 23, 2016. INDICATION 51-year-old female with respiratory failure, dyspnea, nausea, emesis and diarrhea for 5 days. FINDINGS AND IMPRESSION Left arm PICC terminates in the SVC. Lung volumes are diminished from comparison study with minimal increased opacities in the right lung base most consistent with atelectasis. There are also mild increased interstitial opacities in the right upper lobe which may be accentuated by overlapping ribs. This may reflect atelectasis but developing pneumonia cannot be excluded. No evidence of pneumothorax or pleural effusion. Cardiomediastinal silhouette is within normal limits. There are also apparent increased opacities in the left upper lobe emanating from the hilum, possibly reflecting atelectasis. Pneumonia not excluded. Dictated by... Irving Marcano M.D. THIS IS AN ELECTRONICALLY VERIFIED REPORT Irving Marcano M.D. at 03/04/2017 1:51 PM BLM/maurilio TD: 02/25/2017 10:52 JOB #: [id number] [facility] A Service of [facility] & [facility] & [facility] RADIOLOGY TEXT RESULTS PATIENT: SUHAS YOUNGBLOOD LOCATION: [facility] 228-01 : [birth year] UNIT #: [id number] AGE: [address]: Hemalatha Nichols MD SEX: F ORDER DR: MEDICAL IMAGING REPORT Page 1 of 1 COPY
--- NOTE | ~2017-02-21 | EKG ---
PATIENT: SUHAS YOUNGBLOOD UNIT #: [id number] Ventricular Rate: 105 BPM Atrial Rate: 105 BPM P-R Interval: 160 ms QRS Duration: 66 ms Q-T Interval: 348 ms QTC Calculation(Bezet): 459 ms P Diana: 36 degrees Calculated R Diana: -18 degrees Calculated T Diana: -4 degrees Diagnosis Line: Sinus tachycardia Diagnosis Line: Inferior infarct , age undetermined Diagnosis Line: Anteroseptal infarct (cited on or before Diagnosis Line: 23-JUL-2016) Diagnosis Line: Abnormal ECG Diagnosis Line: When compared with ECG of 23-JUL-2016 09:38, Diagnosis Line: Inferior infarct is now Present Diagnosis Line: Questionable change in initial forces of Anterior Diagnosis Line: leads Diagnosis Line: Confirmed by TREASURE SAM MD ([id number]) on Diagnosis Line: 02/22/2017 8:46:41 AM INTERPRETING MD: CECY ARREDONDO
--- NOTE | ~2017-02-21 | HP ---
Unit #: [id number] #: [id number] Patient: SUHAS YOUNGBLOOD 182700 [address] [place], [place] [address] [id number] I MR#: [id number] NAME: SUHAS YOUNGBLOOD. ROOM: 59613 Age: 51 Sex: F Admission Date: 02/21/2017 : 1965 Attending Physician: Emma Palm M.D. Primary Care Physician: No Primary Care Physician HISTORY AND PHYSICAL CHIEF COMPLAINT Diabetic ketoacidosis with abdominal pain and possible hepatic abscess. HISTORY This 51-year-old female with IDDM, COPD, chronic pain, and hyperlipidemia is admitted for diabetic ketoacidosis. Patient states that three weeks ago, she became ill with shortness of breath, weakness and has been experiencing a nonproductive cough. However, 3-4 days ago, she developed increasing epigastric right upper quadrant pain with nausea, vomiting, diarrhea, and chills. She presented to this emergency department early this morning in diabetic ketoacidosis. She is gender in the epigastric and right upper quadrant. CT scan shows new developing hypodense 7.2 cm hepatic lesion most likely secondary to abscess, though a malignancy could not be excluded. In the ER, patient was bolused with 2 liters of saline, given Zofran, and started on an insulin drip. She still is complaining of nausea, vomiting, and dyspnea. She was also given one dose of Zosyn. Of noted, she underwent a laparoscopic cholecystectomy last year. PAST MEDICAL HISTORY 1. IDDM since age 24 with peripheral neuropathy. 2. Hyperlipidemia. 3. COPD. 4. Chronic back and neck pain. 5. Depression. 6. Hyperlipidemia. 7. Diskectomy, L4-5. 8. History of bladder repair. 9. Laparoscopic cholecystectomy. 10. BTL. ALLERGIES To sulfa, erythromycin, and Demerol. HOME MEDICATIONS 1. Levemir, patient states 60 units b.i.d. 2. States that she takes NovoLog 30 units t.i.d. with meals. 3. Albuterol. 4. Symbicort. 5. Cymbalta 60 mg daily. 6. Remeron 30 mg daily. 7. Zocor 40 mg daily. 8. Fenofibrate. Unit #: [id number] #: [id number] Patient: SUHAS YOUNGBLOOD 9. Singulair 10 mg q.h.s. 10. P.R.N. Lortab. 11. Lyrica. FAMILY HISTORY CAD. SOCIAL HISTORY The patient lives with her fiance and daughter. She was smoking one pack per day of tobacco; but, over the past year, cut down to a few cigarettes daily. Does not drink alcohol or use illicit drugs. REVIEW OF SYSTEMS Notable for nausea, vomiting, some diarrhea, abdominal pain, chills, shortness of breath, cough, IDDM, neuropathy, COPD, chronic pain, depression, hyperlipidemia, and abovementioned surgeries. All other systems were reviewed and otherwise negative. PHYSICAL EXAMINATION GENERAL APPEARANCE: 51-year-old female who is quite dyspneic. VITAL SIGNS: Temperature 97.4, pulse 104, respirations 16, blood pressure 168/86, and O2 saturation is 100% on room air. HEENT: Eyes: PERRLA. Extraocular muscles are intact. Pharynx is benign and somewhat reddish appearing. NECK: Supple without adenopathy or thyromegaly. CHEST: Clear. CARDIAC: Normal S1 and S2. Tachycardic without murmur. ABDOMEN: Bowels sounds are present. Patient is most tender in the epigastric and right upper quadrant without rebound or guarding. No definite hepatosplenomegaly or masses. EXTREMITIES: Without C, C, or E. Pedal pulses are present. No ulcers on the feet. NEUROLOGIC: Patient is awake, alert, and oriented. Cranial nerves are intact. Equal strength throughout. DIAGNOSTIC STUDIES LABORATORY: Hematocrit is 42 and normal white count and platelet count. SMA-12: Glucose 620; CO2 11 with an anion gap of 20; sodium 132, which corrects closer to 140; albumin 3.2; bilirubin is 2.1, most indirect; alk phos 107. Normal lipase. BHOB 7.54. ABG: pH 7.25, pCO2 21, pO2 55, and O2 saturation 86.7 on room air. Urinalysis: 2+ leukocyte esterase, 25-50 white cells, and 2+ bacteria. IMAGING: Chest x-ray: No acute disease. CT scan shows new hypodense 7.2 lesion, right inferior hepatic lobe, most likely secondary to abscess although malignancy is less likely, but cannot be excluded. Mild fatty infiltration, right side of the liver capsule. CARDIOVASCULAR: EKG: Sinus tachycardia, rate 105. Poor R wave progression, V1 through V4. ASSESSMENT 1. Diabetic ketoacidosis. 2. Cough with underlying COPD and acute hypoxic respiratory failure. 3. New large right liver lesion, rule out abscess. 4. Hyperlipidemia. 5. Chronic pain. Unit #: [id number] #: [id number] Patient: SUHAS YOUNGBLOOD 6. Possible UTI. PLANS 1. Aggressive IV fluids. 2. Vancomycin and Zosyn pending blood and urine cultures. Patient will need a MRI scan of her liver or multiphase hepatic CT scan when stable. 3. Insulin drip. 4. Reglan, Zofran, and Pepcid. 5. Will ask [facility] to see. 6. [employer] Sergeant to follow. 7. DVT and gastritis prophylaxis. Critical care time spent evaluating this patient was 40 minutes. Dictated by uSpa Anderson/ezra TD: 02/21/2017 07:08 JOB #: [id number] HISTORY AND PHYSICAL Page 1 of 1 X Emma Palm MD HISTORY AND PHYSICAL
[~2017-02-21 01:50] MED LIST: ALBUTEROL17 GM INH; DULOXETINE HCL60 MG PO; FENOFIBRATE145 M1 PO; HYDROCODONE/APA1 T16 PO; K-TAB ER20 MEQ PO; LEVEMIR SUBQ; LEVEMIR100 UNITS/; LEVEMIR100 UNITS/ SUBQ; LISINOPRIL10 MG PO; LORCET 5-325 M1 EACH PO; MIRTAZAPINE30 M1 PO; MONTELUKAST SOD10 MG PO; NOVOLOG100 U/ML; NOVOLOG100 U/ML SUBQ; NOVOLOG100 UNITS/ SUBQ; SIMVASTATIN40 MG PO; SYMBICORT INH; TOPIRAMATE ER50 MG PO
[2017-02-21 03:19] LABS: URINE SOURCE CLEAN CATCH
[2017-02-21 03:25] LABS: BASOPHIL# 0.1 X10e3 (0-0.3); BASOPHIL% 0.8 % (0-2.5); HEMOGLOBIN 13.2 gm/dL (12.0-16.0); LYMPHOCYTE# 1.8 X10e3 (1.0-3.5); LYMPHOCYTE% 18.5 % (17.0-45.0); MEAN CELL VOLUME 94.4 FL (83-96); MEAN CORPUSCULAR HEMOGLOBIN 29.7 PG (28-34); MEAN CORPUSCULAR HGB CONC 31.4 g/dL (30-36); MEAN PLATELET VOLUME 9.4 FL (6.5-11.5); MONOCYTE# 0.4 X10e3 (0-1.0); MONOCYTE% 3.8 % (3.0-12.0); NEUTROPHIL# 7.6 X10e3 (1.5-7.1); NEUTROPHIL% 76.9 % (40-75); PLATELET COUNT 337 X10e3 (140-420); RED BLOOD COUNT 4.45 X10e (3.90-5.30); RED CELL DISTRIBUTION WIDTH 14.6 % (11.0-15.5); WHITE BLOOD COUNT 9.9 X10e3 (4.0-10.5)
[2017-02-21 03:26] LABS: URINE APPEARANCE CLOUDY; URINE BILIRUBIN NEG (NEG); URINE BLOOD 3+ (NEG); URINE COLOR YELLOW; URINE GLUCOSE >1000 MG/DL (NEG); URINE KETONE 3+ (NEG); URINE LEUKOCYTE ESTERASE 2+ (NEG); URINE NITRATE NEG (NEG); URINE PH 5.5 (5-8); URINE PROTEIN NEG (NEG); URINE SPECIFIC GRAVITY 1.027 (1.003-1.035); URINE UROBILINOGEN 0.2 MG/DL (NEG)
[2017-02-21 03:28] LABS: CULTURE INDICATED? YES; DIFF IND NO; U HYALINE CASTS AUWI 0-2 /[LPF]; URINE BACTERIA AUWI 2+ (NEGATIVE); URINE SQUAMOUS EPITHELIAL CELL FEW /[HPF]; UWBCS1 AUWI 25-50 (0-5)
[2017-02-21 03:40] LABS: ARTERIAL BLD GAS O2 SATURATION 86.7 % (90.0-100.0); ARTERIAL BLOOD GAS CARBOXY HB 2.3 %sat (0.0-9.0); ARTERIAL BLOOD GAS HCO3 9.1 mmol/L; ARTERIAL BLOOD GAS MET HB 1.1 %sat (0.0-2.0); ARTERIAL BLOOD GAS pH 7.248 (7.350-7.450)
[2017-02-21 03:41] LABS: ARTERIAL BLOOD GAS ALLEN TEST NORMAL; ARTERIAL BLOOD GAS ART SITE RIGHT RADIAL; ARTERIAL BLOOD GAS DELIVERY ROOM AIR; ARTERIAL BLOOD GAS PO2 54.7 mmHg (80.0-100); ARTERIAL DRAW? YES
[2017-02-21 03:48] LABS: ALBUMIN SERUM 3.2 g/dL (3.5-5.0); BETA HYDROXYBUTYRATE 7.54 MMOL/L (0.02-0.27); BILIRUBIN, DIRECT 0.2 mg/dL (0.0-0.2); BILIRUBIN,INDIRECT 1.9 mg/dL (0.0-0.9); BILIRUBIN,TOTAL 2.1 mg/dL (0.2-2.0); BUN/CREATININE RATIO 10.83; CALCIUM SERUM 8.8 mg/dL (8.4-10.2); CREATININE SERUM 1.2 mg/dL (0.6-1.4); MAGNESIUM 1.8 mg/dL (1.6-3.0); POTASSIUM 4.5 mmol/L (3.5-5.1); PROTEIN TOTAL SERUM 6.4 g/dL (6.0-8.3)
[2017-02-21 07:51] LABS: CK TOTAL 48 IU/L (26-140)
[2017-02-21 07:56] LABS: BUN/CREATININE RATIO 11.42; CALCIUM SERUM 8.6 mg/dL (8.4-10.2); CREATININE SERUM 1.4 mg/dL (0.6-1.4); POTASSIUM 4.5 mmol/L (3.5-5.1)
[2017-02-21 08:15] LABS: AMYLASE 8 U/L (0-46); LIPASE 13 U/L (22-51)
[2017-02-21 11:47] LABS: BUN/CREATININE RATIO 11.81; CREATININE SERUM 1.1 mg/dL (0.6-1.4); GLOM FILT RATE Estimated 58.9 mL/min (>60); POTASSIUM 4.2 mmol/L (3.5-5.1)
[2017-02-21 17:24] LABS: GLOM FILT RATE Estimated 66.1 mL/min (>60)
[2017-02-21 19:03] LABS: BUN/CREATININE RATIO 9.09; CALCIUM SERUM 8.1 mg/dL (8.4-10.2); CREATININE SERUM 1.1 mg/dL (0.6-1.4); GLOM FILT RATE Estimated 58.9 mL/min (>60)
[2017-02-21 19:04] LABS: POTASSIUM 3.3 mmol/L (3.5-5.1)
[2017-02-21 19:05] LABS: INR 0.9; PARTIAL THROMBOPLASTIN TIME 23.1 SECONDS (23.5-31.3); PROTHROMBIN TIME (PATIENT) 9.7 SECONDS (9.6-11.5)
[2017-02-22 03:53] LABS: BASOPHIL# 0.1 X10e3 (0-0.3); BASOPHIL% 0.5 % (0-2.5); EOSINOPHIL% 0.3 % (0.0-7.0); HEMATOCRIT 31.7 % (35.0-45.0); LYMPHOCYTE# 2.6 X10e3 (1.0-3.5); MEAN CORPUSCULAR HEMOGLOBIN 29.7 PG (28-34); MEAN CORPUSCULAR HGB CONC 32.6 g/dL (30-36); MEAN PLATELET VOLUME 7.2 FL (6.5-11.5); MONOCYTE# 0.8 X10e3 (0-1.0); MONOCYTE% 7.7 % (3.0-12.0); NEUTROPHIL% 66.5 % (40-75); PLATELET COUNT 254 X10e3 (140-420); RED BLOOD COUNT 3.49 X10e (3.90-5.30); RED CELL DISTRIBUTION WIDTH 14.3 % (11.0-15.5); WHITE BLOOD COUNT 10.5 X10e3 (4.0-10.5)
[2017-02-22 03:56] LABS: INR 0.9; PROTHROMBIN TIME (PATIENT) 9.6 SECONDS (9.6-11.5)
[2017-02-22 04:27] LABS: ALBUMIN SERUM 2.5 g/dL (3.5-5.0); BILIRUBIN,TOTAL 0.7 mg/dL (0.2-2.0); BUN/CREATININE RATIO 7.77; CALCIUM SERUM 7.6 mg/dL (8.4-10.2); CREATININE SERUM 0.9 mg/dL (0.6-1.4); GLOM FILT RATE Estimated 75.1 mL/min (>60); MAGNESIUM 1.5 mg/dL (1.6-3.0); POTASSIUM 3.1 mmol/L (3.5-5.1); PROTEIN TOTAL SERUM 5.2 g/dL (6.0-8.3)
[2017-02-22 04:28] LABS: HEMOGLOBIN 10.4 gm/dL (12.0-16.0)
[2017-02-22 04:29] LABS: DIFF IND NO
[2017-02-22 11:55] LABS: BUN/CREATININE RATIO 4.54; CALCIUM SERUM 8.1 mg/dL (8.4-10.2); CREATININE SERUM 1.1 mg/dL (0.6-1.4); GLOM FILT RATE Estimated 58.9 mL/min (>60); POTASSIUM 3.7 mmol/L (3.5-5.1)
[2017-02-22 16:05] LABS: BUN/CREATININE RATIO 5.55; CALCIUM SERUM 7.9 mg/dL (8.4-10.2); CREATININE SERUM 0.9 mg/dL (0.6-1.4); GLOM FILT RATE Estimated 75.1 mL/min (>60); POTASSIUM 4.1 mmol/L (3.5-5.1)
[2017-02-22 22:32] LABS: CALCIUM SERUM 7.7 mg/dL (8.4-10.2); CARBON DIOXIDE 16 mmol/L (22-31); CHLORIDE 112 mmol/L (100-111); GLOM FILT RATE Estimated 66.1 mL/min (>60); GLUCOSE FASTING 154 mg/dL (70-110); PHOSPHOROUS 2.3 mg/dL (2.5-4.6); POTASSIUM 4.1 mmol/L (3.5-5.1); SODIUM 136 mmol/L (135-145)
[2017-02-22 22:33] LABS: BLOOD UREA NITROGEN <5 mg/dL (9-23)
[2017-02-23 03:26] LABS: BASOPHIL# 0.1 X10e3 (0-0.3); BASOPHIL% 0.7 % (0-2.5); DIFF IND NO; EOSINOPHIL% 0.2 % (0.0-7.0); HEMATOCRIT 30.8 % (35.0-45.0); HEMOGLOBIN 9.9 gm/dL (12.0-16.0); LYMPHOCYTE# 1.8 X10e3 (1.0-3.5); LYMPHOCYTE% 24.6 % (17.0-45.0); MEAN CORPUSCULAR HEMOGLOBIN 29.7 PG (28-34); MEAN CORPUSCULAR HGB CONC 32.3 g/dL (30-36); MEAN PLATELET VOLUME 7.7 FL (6.5-11.5); MONOCYTE# 0.4 X10e3 (0-1.0); MONOCYTE% 5.7 % (3.0-12.0); NEUTROPHIL# 5.1 X10e3 (1.5-7.1); NEUTROPHIL% 68.8 % (40-75); PLATELET COUNT 206 X10e3 (140-420); RED BLOOD COUNT 3.34 X10e (3.90-5.30); RED CELL DISTRIBUTION WIDTH 14.3 % (11.0-15.5); WHITE BLOOD COUNT 7.4 X10e3 (4.0-10.5)
[2017-02-23 03:58] LABS: CALCIUM SERUM 7.6 mg/dL (8.4-10.2); CARBON DIOXIDE 17 mmol/L (22-31); CHLORIDE 111 mmol/L (100-111); CREATININE SERUM 0.9 mg/dL (0.6-1.4); GLOM FILT RATE Estimated 75.1 mL/min (>60); GLUCOSE FASTING 152 mg/dL (70-110); POTASSIUM 3.6 mmol/L (3.5-5.1); SODIUM 135 mmol/L (135-145)
[2017-02-23 04:01] LABS: BLOOD UREA NITROGEN <5 mg/dL (9-23); BUN/CREATININE RATIO 5.55
[2017-02-23 10:01] LABS: CALCIUM SERUM 7.5 mg/dL (8.4-10.2); CARBON DIOXIDE 16 mmol/L (22-31); CHLORIDE 114 mmol/L (100-111); CREATININE SERUM 0.9 mg/dL (0.6-1.4); GLOM FILT RATE Estimated 75.1 mL/min (>60); GLUCOSE FASTING 91 mg/dL (70-110); PHOSPHOROUS 1.8 mg/dL (2.5-4.6); POTASSIUM 3.2 mmol/L (3.5-5.1); SODIUM 137 mmol/L (135-145)
[2017-02-23 10:02] LABS: BLOOD UREA NITROGEN <5 mg/dL (9-23); BUN/CREATININE RATIO 5.55
[2017-02-23 17:16] LABS: INR 0.9; PARTIAL THROMBOPLASTIN TIME 20.9 SECONDS (23.5-31.3); PROTHROMBIN TIME (PATIENT) 9.4 SECONDS (9.6-11.5)
[2017-02-23 17:40] LABS: BLOOD UREA NITROGEN <5 mg/dL (9-23); BUN/CREATININE RATIO 6.25; CALCIUM SERUM 7.6 mg/dL (8.4-10.2); CARBON DIOXIDE 17 mmol/L (22-31); CHLORIDE 116 mmol/L (100-111); CREATININE SERUM 0.8 mg/dL (0.6-1.4); GLOM FILT RATE Estimated 86.6 mL/min (>60); GLUCOSE FASTING 137 mg/dL (70-110); POTASSIUM 4.5 mmol/L (3.5-5.1); SODIUM 138 mmol/L (135-145)
[2017-02-24 05:01] LABS: BASOPHIL% 0.4 % (0-2.5); EOSINOPHIL% 0.4 % (0.0-7.0); HEMATOCRIT 30.7 % (35.0-45.0); HEMOGLOBIN 9.8 gm/dL (12.0-16.0); LYMPHOCYTE# 2.5 X10e3 (1.0-3.5); LYMPHOCYTE% 35.7 % (17.0-45.0); MEAN CELL VOLUME 92.2 FL (83-96); MEAN CORPUSCULAR HEMOGLOBIN 29.5 PG (28-34); MONOCYTE# 0.5 X10e3 (0-1.0); MONOCYTE% 6.6 % (3.0-12.0); NEUTROPHIL% 56.9 % (40-75); PLATELET COUNT 204 X10e3 (140-420); RED BLOOD COUNT 3.33 X10e (3.90-5.30); RED CELL DISTRIBUTION WIDTH 14.2 % (11.0-15.5)
[2017-02-24 05:02] LABS: DIFF IND NO
[2017-02-24 06:28] LABS: ALBUMIN SERUM 2.5 g/dL (3.5-5.0); BILIRUBIN,TOTAL 0.4 mg/dL (0.2-2.0); BUN/CREATININE RATIO 5.55; CREATININE SERUM 0.9 mg/dL (0.6-1.4); GLOM FILT RATE Estimated 75.1 mL/min (>60); POTASSIUM 3.7 mmol/L (3.5-5.1); PROTEIN TOTAL SERUM 4.9 g/dL (6.0-8.3)
[2017-02-25 05:23] LABS: HEMATOCRIT 29.9 % (35.0-45.0); HEMOGLOBIN 9.6 gm/dL (12.0-16.0); MEAN CELL VOLUME 91.5 FL (83-96); MEAN CORPUSCULAR HEMOGLOBIN 29.4 PG (28-34); MEAN CORPUSCULAR HGB CONC 32.2 g/dL (30-36); MEAN PLATELET VOLUME 8.3 FL (6.5-11.5); RED BLOOD COUNT 3.26 X10e (3.90-5.30); WHITE BLOOD COUNT 7.2 X10e3 (4.0-10.5)
[2017-02-25 06:03] LABS: BUN/CREATININE RATIO 8.75; CREATININE SERUM 0.8 mg/dL (0.6-1.4); GLOM FILT RATE Estimated 86.6 mL/min (>60); MAGNESIUM 1.5 mg/dL (1.6-3.0); POTASSIUM 4.2 mmol/L (3.5-5.1)
[2017-02-26 07:33] LABS: BUN/CREATININE RATIO 7.14; CALCIUM SERUM 8.8 mg/dL (8.4-10.2); CREATININE SERUM 0.7 mg/dL (0.6-1.4); GLOM FILT RATE Estimated 101.7 mL/min (>60); MAGNESIUM 1.7 mg/dL (1.6-3.0); POTASSIUM 4.3 mmol/L (3.5-5.1)
[2017-02-27 07:04] LABS: HEMATOCRIT 32.3 % (35.0-45.0); HEMOGLOBIN 10.4 gm/dL (12.0-16.0); MEAN CELL VOLUME 91.3 FL (83-96); MEAN CORPUSCULAR HEMOGLOBIN 29.4 PG (28-34); MEAN CORPUSCULAR HGB CONC 32.2 g/dL (30-36); MEAN PLATELET VOLUME 8.4 FL (6.5-11.5); RED BLOOD COUNT 3.54 X10e (3.90-5.30); WHITE BLOOD COUNT 7.1 X10e3 (4.0-10.5)
[2017-02-27 08:08] LABS: BUN/CREATININE RATIO 11.42; CALCIUM SERUM 8.8 mg/dL (8.4-10.2); CREATININE SERUM 0.7 mg/dL (0.6-1.4); GLOM FILT RATE Estimated 101.7 mL/min (>60)
[2017-02-27] MEDS ORDERED: DULERA 200 MCG/13 GM INH (11:37)
[2017-02-27] MEDS ORDERED: ELIQUIS5 MG PO (11:38)
== END 2017-02-27 12:08 | disposition home or self-care (01) | DRG 637 ==
LOC: CED 01:50 → CEDOF 05:59 → CED 05:59 → CICCU2 05:59 → CEDOF 06:00 → CICCU2 09:39 → CEDOF 09:39 → CICCU2 02-24 07:10 → C2A 02-24 15:47
PROVIDERS: Emergency Medicine; Internal Medicine; Internal Medicine Pulmonary Disease; Radiology Diagnostic Radiology
PROC: 02HV33Z Insertion of Infusion Device into Superior Vena Cava, Percutaneous Approach (ICD-10-PCS; 2017-02-21)
PROC: B548ZZA Ultrasonography of Superior Vena Cava, Guidance (ICD-10-PCS; 2017-02-21)
PROC: 0FB13ZX Excision of Right Lobe Liver, Percutaneous Approach, Diagnostic (ICD-10-PCS; principal; 2017-02-24)
DX: E13.10 Other specified diabetes mellitus with ketoacidosis without coma (principal); J96.00 Acute respiratory failure, unspecified whether with hypoxia or hypercapnia; J18.9 Pneumonia, unspecified organism; I82.621 Acute embolism and thrombosis of deep veins of right upper extremity; J44.0 Chronic obstructive pulmonary disease with (acute) lower respiratory infection; N39.0 Urinary tract infection, site not specified; Z79.4 Long term (current) use of insulin; F17.210 Nicotine dependence, cigarettes, uncomplicated; E83.42 Hypomagnesemia; F32.9 Major depressive disorder, single episode, unspecified; E78.5 Hyperlipidemia, unspecified; K76.0 Fatty (change of) liver, not elsewhere classified; G89.4 Chronic pain syndrome; Z98.51 Tubal ligation status; Z82.49 Family history of ischemic heart disease and other diseases of the circulatory system; Z88.2 Allergy status to sulfonamides; Z88.1 Allergy status to other antibiotic agents; Z88.5 Allergy status to narcotic agent; Z90.49 Acquired absence of other specified parts of digestive tract
CPT/HCPCS: 36600; 71010; 71020; 74160; 74170; 74176; 76937; 77001; 77012; 80048; 80053; 80076; 80202; 81003; 82010; 82150; 82533; 82550; 82803; 82947; 83036; 83605; 83690; 83735; 84100; 84484; 85025; 85027; 85610; 85730; 87040; 87070; 87086; 87205; 88307; 88313; 93005; 93971; 94640; 94664; 94760; 96361; 96365; 96375; 99285; C1751; C1769; G0238; J1650; J1815; J2250; J2270; J2405; J2543; J2765; J3010; J3370; J3475; Q9967

== ENCOUNTER 2017-03-29 15:19 | Inpatient (IN) | payer OTHER ==
--- NOTE | ~2017-03-29 | CR72 ---
[facility] A Service of [facility] & [facility] RADIOLOGY TEXT RESULTS PATIENT: SUHAS YOUNGBLOOD [facility] [birth year] UNIT #: [id number] AGE: [address]: Ravindra Gavin MD SEX: F ORDER DR: [id number] [facility] [address] [place], [place] [address] [id number] MR#: [id number] Acc #: [id number] NAME: SUHAS YOUNGBLOOD. : 1965 SEX: F STUDY DATE/TIME: 03/29/2017 16:26 UNIT: [facility] ROOM: STUDY DESCRIPTION: CR Chest Single View Portable Attending Physician: Gloria Rivera M.D. Ordering Physician: Gloria Rivera M.D. Primary Care Physician: Generic Doctor Not In System MEDICAL IMAGING REPORT This report is preliminary unless electronic signature is present EXAM Portable chest INDICATIONS Chest pain for 3 weeks. BKA. COMPARISON 02/27/2017 FINDINGS Low-volume inspiration. No acute infiltrate. Heart size normal. IMPRESSION No active disease. Dictated by... Teo De La Cruz M.D. THIS IS AN ELECTRONICALLY VERIFIED REPORT Teo De La Cruz M.D. at 03/30/2017 7:24 PM Dalia TD: 03/29/2017 18:27 JOB #: [id number] MEDICAL IMAGING REPORT Page 1 of 1 COPY
--- NOTE | ~2017-03-29 | DS ---
Unit #: [id number] #: [id number] Patient: SUHAS YOUNGBLOOD [id number] [address] [place], [place] [address] [id number] I MR#: [id number] NAME: SUHAS YOUNGBLOOD ROOM: 467 Age: 51 Sex: F Admission Date: 03/29/2017 : 1965 Discharge Date: 04/03/2017 Attending Physician: Ravindra Gavin M.D. Primary Care Physician: Generic Doctor Not In System DISCHARGE SUMMARY REASON FOR ADMISSION DKA/abdominal pain, intractable nausea and vomiting. HISTORY OF PRESENT ILLNESS/HOSPITAL COURSE The patient is a 51-year-old white female with a prior history of insulin-dependent diabetes, (she was unable to obtain her insulin secondary to cost issues), longstanding history of noncompliance secondary to cost issues, COPD, hyperlipidemia and hypertension who presented secondary to abdominal pain, intractable nausea and vomiting. She had recently been admitted in January. She stated that she progressively got worse; thus, presented back to the ER for further evaluation. She was subsequently admitted and noted to be in DKA, placed on DKA protocol and subsequently transitioned to the ICU. Eventually DKA protocol was discontinued. She was placed on appropriate sliding scale insulin. Her hemoglobin A1C was noted to be 10.1% this hospital admission. When we resumed diet, she stated she had increased abdominal pain, nausea and vomiting; therefore, we placed consultation to Dr. Barnhart of gastroenterology service. The patient ultimately underwent upper GI endoscopy, which did show grade 1 distal erosive esophagitis, prepyloric antral gastritis, and patchy erosive duodenitis was also noted. PPI recommendation was made prior to discharge. The patient did have upper extremity swelling in her left arm where midline was placed. The patient underwent an ultrasound of the aforementioned area. On the left side there was no DVT noted, but there was occlusive superficial venous thrombosis in the cephalic vein noted. On the right there was occlusive vein thrombus in the jugular, subclavian, as well as axillary, veins. This was unchanged from previous imaging from February 25, 2017. There was also a superficial venous thrombosis in the right superficial brachial vein. Today the patient is, otherwise, clinically stable, has been tolerating diet well. Her laboratory studies yielded normal creatinine at 0.9. CBC shows a hemoglobin of 9.8, likely representing mild iron deficiency. Secondary to cost issues, social work will be seeing and evaluating the patient to help with cost of medications. The patient will also be seen prior to discharge by hematology service for anticoagulation decision in regard to the aforementioned axillary vein thrombosis, as well as superficial vein thrombosis. Once decision is made in that regard and medications are adjusted and appropriate social work consultation is Unit #: [id number] #: [id number] Patient: SUHAS YOUNGBLOOD completed, the patient will be stable for discharge home. Overall, her long-term prognosis depends on her ability to obtain and continue taking insulin. She expresses understanding of the plans at time of discharge. FINAL DISCHARGE DIAGNOSES 1. Diabetic ketoacidosis, now resolved. 2. Insulin-dependent diabetes type 2. 3. Chronic obstructive pulmonary disease. 4. Anxiety/depression. 5. Abdominal pain, now resolved. 6. Intractable nausea and vomiting, now improved. 7. Likely underlying diabetic gastroparesis. 8. Poorly-controlled type 2 diabetes. 9. Hyperlipidemia. 10. Grade 1 erosive esophagitis. 11. Duodenitis. 12. Antral gastritis. FINAL DISCHARGE MEDICATIONS 1. Potassium chloride 20 mEq p.o. daily. 2. Protonix 40 mg p.o. daily. 3. NovoLog 5 units t.i.d. with meals. 4. Levemir 30 units subcu b.i.d. 5. Simvastatin 40 mg p.o. daily. 6. Cymbalta 60 mg p.o. daily. 7. Symbicort 160/4.5 two puffs b.i.d. 8. Ventolin 1-2 puffs q.4-6 p.r.n. DISCHARGE CONDITION Stable. DISCHARGE DISPOSITION Home. FOLLOW UP Follow up with PCP in 7-10 days post discharge. Dictated by... Supa Gomez/jacqueline TD: 04/05/2017 07:30 JOB #: [id number] Unit #: [id number] #: [id number] Patient: SUHAS YOUNGBLOOD DISCHARGE SUMMARY Page 1 of 1 X oY Gonzalez MD X DISCHARGE SUMMARY
--- NOTE | ~2017-03-29 | EKG ---
PATIENT: SUHAS YOUNGBLOOD UNIT #: [id number] Ventricular Rate: 110 BPM Atrial Rate: 110 BPM P-R Interval: 144 ms QRS Duration: 60 ms Q-T Interval: 324 ms QTC Calculation(Bezet): 438 ms P [place]: 57 degrees Calculated R [place]: 59 degrees Calculated T [place]: 9 degrees Diagnosis Line: Sinus tachycardia Diagnosis Line: Anteroseptal infarct (cited on or before Diagnosis Line: 23-JUL-2016) Diagnosis Line: Abnormal ECG Diagnosis Line: When compared with ECG of 21-FEB-2017 02:45, Diagnosis Line: Criteria for Inferior infarct are no longer Diagnosis Line: Present Diagnosis Line: Confirmed by SERGEY LIGHT MD ([id number]) on 03/30/2017 Diagnosis Line: 8:23:07 PM INTERPRETING MD: KULDEEP ARREDONDO
--- NOTE | ~2017-03-29 | US139 ---
[facility] A Service of [facility] & [facility] RADIOLOGY TEXT RESULTS PATIENT: SUHAS YOUNGBLOOD LOCATION: [facility] 467-01 : [birth year] UNIT #: [id number] AGE: [address]: Ravindra Gavin MD SEX: F ORDER DR: [id number] [facility] [address] [place], [place] [address] [id number] I MR#: [id number] Acc #: [id number] NAME: SUHAS YOUNGBLOOD : 1965 SEX: F STUDY DATE/TIME: 04/02/2017 10:22 UNIT: [facility] ROOM: [facility] STUDY DESCRIPTION: US UE Veins Complete Tom Stdy Attending Physician: Yo Gonzalez M.D. Ordering Physician: Yo Gonzalez M.D. Primary Care Physician: Generic Doctor Not In System MEDICAL IMAGING REPORT This report is preliminary unless electronic signature is present EXAM Bilateral upper venous Doppler 04/02/2017 HISTORY Left arm pain for several hours. History of right arm DVT. PROCEDURE Ferrell-scale imaging, color-Doppler flow imaging and Doppler waveform analysis. FINDINGS On the left, there is occlusive superficial thrombus in the cephalic vein above the elbow, but the deep veins, including the jugular, subclavian, axillary, brachial veins, are normal and basilic veins and distal cephalic veins normal. On the right, and there is occlusive thrombus in the axillary vein and superficial brachial vein, but the jugular, subclavian and deep brachial veins are normal and superficial cephalic and basilic veins are normal. Overall this actually represents an improvement compared to 02/25/17 though the left cephalic vein was never previously evaluated. IMPRESSION 1. On the left, there is no DVT, though there is occlusive superficial venous thrombus in the cephalic vein above the elbow. The rest of the left upper extremity is normal. 2. On the right, there is occlusive axillary vein thrombus, though on the prior Doppler study of February 25, 2017, there was occlusive thrombus in the jugular, subclavian, and axillary veins. These findings represent improvement. 3. There is also some superficial venous thrombus in the right in the superficial brachial vein whereas, the superficial cephalic and STS. [facility] A Service of [facility] & [facility] RADIOLOGY TEXT RESULTS PATIENT: SUHAS YOUNGBLOOD LOCATION: [facility] 467-01 : [birth year] UNIT #: [id number] AGE: [address]: Ravindra Gavin MD SEX: F ORDER DR: basilic veins are normal. Dictated by... Benson Hayes M.D. THIS IS AN ELECTRONICALLY VERIFIED REPORT Benson Hayes M.D. at 04/03/2017 10:54 AM SANDY/dustin TD: 04/02/2017 19:13 JOB #: [id number] MEDICAL IMAGING REPORT Page 1 of 1 COPY
--- NOTE | ~2017-03-29 | OR ---
Unit #: [id number] #: [id number] Patient: SUHAS YOUNGBLOOD [id number] [address] [place], [place] [address] [id number] I MR#: [id number] NAME: SUHAS YOUNGBLOOD ROOM: 467 Date of Procedure: 04/01/2017 Admission Date: 03/29/2017 Surgeon: Kyle Barnhart M.D. : 1965 Attending Physician: Yo Gonzalez M.D. Primary Care Physician: Generic Doctor Not In System OPERATIVE REPORT PRIMARY CARE PHYSICIAN Sara Felix M.D. PREOPERATIVE DIAGNOSES Dyspepsia and retrosternal ascending heartburn. PROCEDURES PERFORMED Upper gastrointestinal endoscopy and biopsy. POSTOPERATIVE DIAGNOSES 1. The patient had grade 1 distal erosive esophagitis. 2. There was mild prepyloric antral gastritis. 3. There was focal patchy erosive duodenitis involving the duodenal bulb. 4. Rest of the examination up to third part of duodenum was normal. 5. A biopsy was obtained from the antrum for CLOtest. RECOMMENDATIONS The patient should stay on once a day pantoprazole 40 mg p.o. daily or an equivalent dose of omeprazole. No other intervention is indicated. She can be discharged home from GI standpoint. SEDATION USED MAC. DESCRIPTION OF PROCEDURE Following detailed explanation of potential risks and complications of an upper endoscopy, namely perforation, bleeding, and complication related to sedation, the patient was brought to GI lab and laid in the left lateral decubitus position. Lubricated tip of the Olympus video upper endoscope was passed through the bite block into the proximal esophagus under direct vision. The entire esophageal mucosa was examined. The patient was noted to have grade 1 distal erosive esophagitis. The scope was then advanced into the gastric cavity and the latter was insufflated. Mucosa of the fundus, body, and antrum was examined. [id number]-[id number] prepyloric antral diffuse erosive gastritis was noted. Pylorus was intubated with visualization of the duodenal bulb. The latter was noted to have mild focal patchy erosive duodenitis. Second and third part of duodenum were normal. Upon withdrawal and retroflexion; incisura, cardia, and greater curve was examined and a biopsy was obtained from the antrum for CLOtest. The scope was then withdrawn in the distal esophagus. The entire esophageal mucosa was examined all the way up to pharynx. No additional findings were noted. The patient tolerated the procedure without any Unit #: [id number] #: [id number] Patient: SUHAS YOUNGBLOOD postprocedure complications. Dictated by... Supa Stephenson/erin TD: 04/01/2017 18:38 JOB #: [id number] CC: Supa Dimas M.D. OPERATIVE REPORT Page 1 of 1 X Kyle Barnhart MD X PROCEDURE OPERATIVE NOTE
--- NOTE | ~2017-03-29 | HP ---
Unit #: [id number] #: [id number] Patient: SUHAS SOARES [id number] [address] [place], [place] [address] [id number] I MR#: [id number] NAME: SUHAS SOARES. ROOM: [facility] Age: 51 Sex: F Admission Date: 03/29/2017 : 1965 Attending Physician: Sara Felix M.D. Primary Care Physician: Generic Doctor Not In System HISTORY AND PHYSICAL CHIEF COMPLAINT Intractable nausea and vomiting with abdominal pain. HISTORY OF PRESENT ILLNESS Ms. Soares is a 51-year-old white female with a history of insulin dependent diabetes, COPD, hyperlipidemia, who presents with worsening abdominal pain with nausea, vomiting. The patient states she was just discharged here at the end of January and ever since then has been having problems. She states that "everything got worse." She complains of increased abdominal pain, also increased pain in her chest and arms and legs. She states that she hasn't been able to eat due to nausea and vomiting. She is unable to keep down her medications which she has not had her medications for the last three to four days. She states she is also having frequent bowel movements, not diarrhea but having small, frequent BMs. She admits that she does not have a glucometer as she is not able to afford one. She states that it hurts to eat, therefore, she hasn't been able to eat. She is urinating. She is trying to drink water but states that it even hurts to drink water. She denies any fevers, chills. She repeatedly states that she can't breathe though she is speaking in complete sentences. She also complains of pain and is asking for medications for pain. PAST MEDICAL HISTORY Significant for: 1. Hypertension. 2. COPD. 3. Insulin dependent diabetes. 4. She was recently diagnosed with a right upper extremity internal jugular, axillary and subclavian DVT on her most recent admission here in January. 5. She also was recently diagnosed with a hepatic lesion that was due to focal steatosis. 6. She has a history of chronic pain syndrome due to chronic neck and back pain. 7. She has depression. 8. Hyperlipidemia. 9. She has had a discectomy at L4 and 5. 10. History of a blader repair. 11. She has had a cholecystectomy. 12. Bilateral tubal ligation. ALLERGIES Sulfa, erythromycin and Demerol. Unit #: [id number] #: [id number] Patient: SUHAS SOARES MEDICATIONS Her medications include: 1. Simvastatin 40 mg p.o. daily. 2. Potassium chloride 20 mEq p.o. daily. 3. Singulair 10 mEq p.o. q. h.s. 4. Cymbalta 60 mg p.o. daily. 5. Albuterol, one puff every four hours as needed. 6. Levemir 50 units subcu at bedtime. 7. NovoLog 30 units subcu t.i.d. 8. Dulera 200 mcg/5 mcg, two puffs b.i.d. 9. She also has listed Symbicort 160/4.5 mcg, one puff daily 10. Protonix 40 mg p.o. daily. SOCIAL HISTORY She states that she has not been able to smoke but will not clearly tell me if she has quit smoking completely. No alcohol or drug use. FAMILY HISTORY Significant for diabetes, COPD, cancer such as uterine cancer, history of MIs. REVIEW OF SYSTEMS CONSTITUTION: No fever, chills but nausea and vomiting as described above. HEENT: No blurry vision, no hearing difficulties. She says she is having difficulty swallowing but no pain with swallowing. PULMONARY: Again, she states she is dyspneic. No hemoptysis or cough. CARDIOVASCULAR: She states she has chest pain. She denies any swelling in her lower extremities. GI: As described above. : As described above. MUSCULOSKELETAL: Normally ambulates without the need for a cane or walker. ENDOCRINE: Again, she is diabetic. No thyroid or adrenal abnormalities. HEMATOLOGIC: She has no known bleeding or bruising abnormalities though she is currently on Eliquis for the recent DVT found in her right upper extremity back in January. NEUROLOGIC: No known history of seizure disorder, no one-sided weakness. PHYSICAL EXAMINATION VITAL SIGNS: Temp is 98.6, pulse has been running 120s though when I was in her room examining her she was up into the 140s. Respiratory rate has been anywhere from 17 to the mid 20s. Blood pressure is 107/69. She is 100% on room air. GENERAL APPEARANCE: She is a 51-year-old white female who is awake, alert, in no acute distress. HEENT: Normocephalic, atraumatic. Extraocular movements intact. Pupils equal, round, reactive to light and accommodation. Nose and throat within normal limits except for dry mucous membranes. NECK: Supple. No JVD or bruits. CHEST: Clear to auscultation bilaterally with no wheezes, rhonchi or crackles. CARDIOVASCULAR: S1 and S2 normal. She has a regular rate and rhythm. ABDOMEN: Soft, nontender, nondistended. Positive bowel sounds. EXTREMITIES: No cyanosis, clubbing or edema. MUSCULOSKELETAL: She moves all four extremities without difficulty. NEUROLOGIC: He is oriented x3. Sensorimotor appear to be intact. SKIN: She has some scarring on her bilateral lower extremities. On her Unit #: [id number] #: [id number] Patient: SUHAS SOARES right lower extremity, she does have a round, open area but no visible drainage. DIAGNOSTIC STUDIES CARDIOVASCULAR: EKG shows a normal sinus rhythm. She was tachycardic with a heart rate in the 110s. No ST-T wav changes. LABORATORY: Her laboratory work included a pH of 7.390, pCO2 of 19.5, pO2 of 109. This is on room air. Her sodium was 127, potassium 4.4, chloride 96, bicarb 13, BUN and creatinine 14 and 1.2 with a glucose of 544. Her calcium is 8.5, total protein 6.7, albumin 3.3, total bili 2.0, AST 27, ALT 26, alkaline phos. 160. Amylase was 13, lipase was 21. Lactic acid was 1.3. Her acetone level was 7.16. Her PT/INR is 10.4 and 1.0 with a PTT of 23.4. White count was 10.7. H and H is 11.4 and 35.9 with a platelet count of 331. Negative differential. Her urinalysis showed 2+ leukocyte esterase, greater than 1000 glucose, 3+ ketones, 3+ blood, 1+ urine bacteria, 25-50 white blood cells. Her urine tox was negative. IMPRESSION Ms. Soares is a 51-year-old white female with insulin dependent diabetes, COPD, chronic pain syndrome, who presents with DKA and urinary tract infection. PLAN 1. Diabetic ketoacidosis due to uncontrolled insulin dependent diabetes: Will continue with a DKA protocol started in the emergency department. She will be on IV fluids, insulin. Will monitor labs. Patient states she is unable to afford a glucometer. Therefore, will ask the social sciences chair to see her. 2. Urinary tract infection: Will start IV antibiotics. Will check a urine culture. 3. Abdominal pain with intractable nausea and vomiting: Likely, this is due to DKA. Will control her symptoms for now. 4. Recent right upper extremity IJ, subclavian and right axillary vein deep venous thrombosis: Will continue Eliquis. 5. Code status: The patient is a Full Code. Dictated by Supa Dimas/kyle TD: 03/30/2017 07:09 JOB #: [id number] Unit #: [id number] #: [id number] Patient: SUHAS SOARES HISTORY AND PHYSICAL Page 1 of 1 X Sara Felix HISTORY AND PHYSICAL
--- NOTE | ~2017-03-29 | CO ---
Unit #: [id number] #: [id number] Patient: SUHAS YOUNGBLOOD [id number] [address] [place], [place] [address] [id number] I MR#: [id number] NAME: SUHAS YOUNGBLOOD ROOM: 467 Age: 51 Sex: F Admission Date: 03/29/2017 : 1965 Attending Physician: Ravindra Gavin M.D. Primary Care Physician: Generic Doctor Not In System CONSULTATION REPORT CHIEF COMPLAINT Right upper extremity DVT secondary to PICC line. Bilateral upper extremity superficial vein thrombosis. Received just one month of Xarelto. Came with DKA. 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 She started smoking at the age of 17. She has been smoking one pack per day for 30 years, still smoking, tried to quit. Patient has diabetes. This has been going on for more than 25 years. She developed nausea, vomiting. Patient has a DKA. EGD and a colonoscopy during this admission showed esophagitis and duodenitis. She is going home. Last year patient had a right upper extremity DVT secondary to PICC line. She received one month of Xarelto, quit. During this admission she complained of bilateral upper extremity swelling that has improved. However, venous Doppler ultrasound on 04/02/2017 showed a persistent right upper DVT. There is a partial resolution. However, in both upper extremities there is a superficial vein thrombosis. REVIEW OF SYSTEMS CONSTITUTIONAL: No fever, no chills, no sweats, no weight loss. EYES: No visual symptoms. EARS, NOSE AND THROAT: There is no runny nose or sore throat or difficulty hearing. CARDIOVASCULAR: No chest pain. No shortness of breath. No palpitations. No orthopnea. No PND. RESPIRATORY: No cough. No wheezing. No hemoptysis. GASTROINTESTINAL: No nausea, vomiting, diarrhea, constipation, hematochezia or melena. GENITOURINARY: No urinary frequency, hesitancy or urgency. No blood in the urine. MUSCULOSKELETAL: No muscle or joint pain. NEUROLOGIC: No headache. No numbness or tingling. No weakness. No seizure. PSYCHIATRIC: No anxiety, depression or mood disturbance. ENDOCRINE: No excessive urination or thirst. DERMATOLOGIC: No rash or change in the skin. ALLERGIC/IMMUNOLOGIC: No symptoms. HEMATOLOGIC/LYMPHATIC: Denies any symptoms. Unit #: [id number] #: [id number] Patient: SUHAS YOUNGBLOOD PAST MEDICAL HISTORY Diabetes, COPD, DVT. ALLERGIES Erythromycin, sulfa, Demerol. SOCIAL HISTORY As mentioned above started smoking at the age of 17, has been smoking one pack per day for 30 years, denies alcohol abuse. She is an RN. FAMILY HISTORY Father had coronary artery disease. PAST SURGICAL HISTORY Cholecystectomy, tubal ligation, back surgery. MEDICATION See the list. PHYSICAL EXAMINATION GENERAL: Patient is comfortable. ECOG is 0. The patient is pleasant. VITAL SIGNS: Afebrile, O2 sat on room air 100%, pulse 89, respiratory rate 18, blood pressure 139/75. HEENT: Moist mucosa. Pupils equally reactive to light. Extraocular muscles intact. Sclerae anicteric. No obvious bleeding from nasal mucosa or oral mucosa. Scalp normal. Hearing normal. NECK: No JVD. No lymphadenopathy. LYMPHATIC/HEMATOLOGIC: There is no palpable adenopathy in the neck, axilla or inguinal area. CARDIOVASCULAR: S1, S2. Regular rate and rhythm. No S3 or S4. RESPIRATORY: Chest symmetrical, normal. Clear to auscultation bilaterally. No wheezes, no rales, no rhonchi. No dullness to percussion. ABDOMEN/GASTROINTESTINAL: Abdomen is soft, nontender, nondistended. No hepatosplenomegaly. EXTREMITIES: There is no clubbing, no cyanosis, no edema. No varicose veins. NEUROLOGICAL: Patient is alert, awake and oriented x3. Cranial nerves II-XII are intact. Sensory grossly intact. Motor is 4/5 in all four extremities. Gait is normal. Station is normal. Language is normal. Memory is normal. DTRs +2 in all four extremities. MUSCULOSKELETAL: No joint swelling. No bony tenderness. No muscle tenderness. SKIN: No petechiae, no rash, no ecchymosis. PSYCHIATRIC: No anxiety. No delusions or hallucinations. There is no agitation. Eye contact is normal. Affect is appropriate. There is no flight of ideas. DIAGNOSTIC STUDIES IMAGING: Ultrasound as mentioned above. LABORATORY: WBC 6.3, hemoglobin 9.8, MCV 92, platelets 217, creatinine is 0.9, LFTs are normal. During this admission her sugar was 544. ASSESSMENT AND PLAN This is a 51-year-old female with the following active issues: 1. Deep venous thrombosis: Patient has a right upper extremity DVT. This was due to PICC line. She received one month of Xarelto. She Unit #: [id number] #: [id number] Patient: SUHAS YOUNGBLOOD. She was lost to follow up. Now she has a bilateral upper extremity superficial vein thrombosis. There is partial resolution of DVT. I had an extensive discussion with patient. Will just start her on 200 mg p.o. b.i.d. She will follow with my partner, Dr. Kary Brian. 2. Anemia: As an outpatient will check iron studies. DISCUSSION I had an extensive discussion with patient. As an outpatient, if she agrees, we might consider hypocoagulable workup. Alternatively we will just simply observe. If she develops second time DVT then she will be on lifelong anticoagulation. 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 Dictated by... Supa Weeks/pramod TD: 04/03/2017 21:14 JOB #: [id number] CONSULTATION REPORT Page 1 of 1 X Marii Brian MD CONSULTATION REPORT
--- NOTE | ~2017-03-29 | CO ---
Unit #: [id number] #: [id number] Patient: SUHAS SOARES [id number] [address] [place], [place] [address] [id number] I MR#: [id number] NAME: SUHAS SOARES ROOM: 46 Age: 51 Sex: F Admission Date: 03/29/2017 : 1965 Attending Physician: Yo Gonzalez M.D. Primary Care Physician: Generic Doctor Not In System Consultation Date: 03/31/2017 CONSULTATION REPORT ATTENDING PHYSICIANS 1. Dr. Sara Felix. 2. Dr. Yo Gonzalez. REASON FOR CONSULTATION Intractable nausea and vomiting and postprandial dyspepsia. HISTORY Ms. Soares is a 51-year-old white female, who is admitted with uncontrolled diabetes and diabetic ketoacidosis. She mentions history of nausea and vomiting, retrosternal burning, and heartburn. This has been going on for decades in the background along with recent emergence of nausea and vomiting due to uncontrolled diabetes and ketoacidosis. She is feeling much better since after admission, after her blood sugars and ketoacidosis has been treated. PAST MEDICAL HISTORY 1. History of COPD. 2. Insulin-dependent diabetes. 3. Hypertension. 4. She also was diagnosed with chronic pain syndrome due to back pain. 5. Depression. 6. Hyperlipidemia. PAST SURGICAL HISTORY 1. Bladder repair surgery. 2. Diskectomy, L4 and L5. 3. Cholecystectomy. 4. Bilateral tubal ligation. HOME MEDICATIONS 1. Simvastatin. 2. Potassium. 3. Chloride. 4. Singulair. 5. Cymbalta. 6. Albuterol. 7. Levemir. 8. NovoLog insulin. 9. Dulera. 10. Symbicort. 11. Protonix. ALLERGIES Unit #: [id number] #: [id number] Patient: SUHAS SOARES Sulfonamides, erythromycin, and Demerol. SOCIAL HISTORY Patient still smokes. Does not drink alcohol. FAMILY HISTORY Significant for COPD, diabetes, uterine cancer, and myocardial infarcts. REVIEW OF SYSTEMS A detailed review of organ system does not reveal any recent weight loss. No history of fever, chills, rigors. No history of headache, seizures, chest pain, or syncope. No history of cough, expectoration, hemoptysis. No history of dysuria, hematuria, pyuria. No history of focal seizures or extremity weakness. The rest of the review of organ systems unremarkable. PHYSICAL EXAMINATION GENERAL: She is awake, alert, and oriented and appears comfortable. VITAL SIGNS: Vital signs are stable with a temperature of 98.3, pulse is 98 per minute and regular, respiratory rate is 18, blood pressure 128/85. She weighs 222 pounds. She was close to her baseline weight. She has mild pallor, there being no icterus, lymphadenopathy, peripheral edema. CARDIOVASCULAR: Normal heart sounds. No murmurs. LUNGS: Auscultation over the lungs reveals normal breath sounds. Good air entry. ABDOMEN: Soft, obese, nontender. Liver and spleen are not palpable. Bowel sounds normal. DIAGNOSTIC STUDIES LABORATORY: Lab evaluation reveals a white count of 10.7 thousand. Hemoglobin is 11.4 with normochromic, normocytic red cell indices. Platelet count is 331,000. Serum chemistry shows a normal BUN and creatinine and patient was acidotic with a CO2 of 13 yesterday and 16 today. Albumin is 3.3. AST and ALT are normal. IMPRESSION The most likely etiology of patient's presentation is esophagitis as a result of retching. Other possibility includes to have longstanding gastroesophageal reflux and underlying erosive esophageal disease. Lastly, peptic ulcer disease is a distant possibility. MANAGEMENT PLAN A diagnostic endoscopy is in order and will be scheduled for tomorrow. The pros and cons of procedure and potential risks and complications were discussed with patient. She was reassured. Thank you for asking me to see this pleasant woman. I appreciate the consult. Dictated by... Supa Stephenson/sarah TD: 04/02/2017 11:52 JOB #: [id number] Unit #: [id number] #: [id number] Patient: SUHAS SOARES CONSULTATION REPORT Page 1 of 1 X Kyle Barnhart MD CONSULTATION REPORT
--- NOTE | ~2017-03-29 | A ---
[facility] Nutrition Therapy DATE: 03/30/17 Patient: SUHAS YOUNGBLOOD Physician: ADALI Address: [address] [facility] Room/Bed: [address], Zip: [place] [address] Admit Date: 03/29/17 Date of : [birth year] Height: 5 11 Weight: 220 100 NUTRITIONAL ASSESSMENT: REASON: NPO in ICU, DKA 51 y/o female admitted for DKA, UTI PMH: DM, COPD, HTN, stroke, depression, anxiety Anthropometrics: ht: 5'11" wt: 220# (100 kg) BMI 29 Labs: Na+ 132, K+ 3.0, Glu 124, Ca++ 8.0, Alb 3.3, Phos 1.8, Accuchecks 103-231, Lip 21, GFR 48.1 Meds: dulera, novolin, rocephin, KCl, lipitor, morphine-sulfate, dextrose 5%, protonix I/O & Bowel function: none noted/151. BM 03/29 Skin Integrity: scar- BLE, scab- RLE Diet: NPO Assessment: Chart reviewed, events noted. Pt seen in ICU for NPO + DKA. Pt was seen previously during her admission in January [address] marketing operations intern spoke with pt at bedside. Pt reports not tolerating food well for the past 3 weeks. She gets nauseous when eating and has severe stomach pain, therefore she is unable to eat a consistent diabetic diet. Pt reports tolerating cottage cheese, fish, soup broth. RD marketing operations intern provided written and verbal diabetic diet education, provided examples of healthy foods, and encouraged pt to follow a diabetic diet once her diet is advanced/she can tolerate. No questions at this time. RD will continue to follow. Dx: 1) Inadequate oral intake r/t n/v/d, clinical condition AEB NPO status 2) Impaired glucose utilization r/t lifestyle, non-compliance AEB accuchecks 103-231, DKA, previous A1c Intervention: 1. NPO 2. Diet education Monitoring, Evaluation and Goals: 1. Oral intake; once diet is advanced, consume/tolerate >50% of all meals 2. Labs; glucose, A1c 3. Weight; promote gradual weight loss towards healthy BMI, promote healthy weight maintenance [facility] Nutrition Therapy DATE: 03/30/17 Patient: SUHAS YOUNGBLOOD Physician: ADALI Address: [address] [facility] Room/Bed: [address], Zip: [place] [id number] Admit Date: 03/29/17 Date of : [birth year] Height: 5 11 Weight: 220 100 Recommendations: 1. Once medically feasible, advance diet as tolerated to consistent carbohydrate. Pt could benefit from glucerna shakes once diet advances 2' n/v/d. 2. Encourage pt to comply with diabetes medical nutrition therapy diet education. 3. Obtain updated HgbA1c to further assess diabetes management. RD will f/u per protocol as pt is at moderate nutritional risk. Respectfully, MAGDA STAFFORD spring intern Food and Nutritional Services [facility] cc: client file
[~2017-03-29 15:19] MED LIST changes: +DULERA 200 MCG/13 GM INH; +ELIQUIS5 MG PO
[2017-03-29 16:28] LABS: ARTERIAL BLD GAS O2 SATURATION 97.3 % (90.0-100.0); ARTERIAL BLOOD GAS CARBOXY HB 0.8 %sat (0.0-9.0); ARTERIAL BLOOD GAS HCO3 11.8 mmol/L; ARTERIAL BLOOD GAS MET HB 0.7 %sat (0.0-2.0)
[2017-03-29 16:30] LABS: ARTERIAL BLOOD GAS ALLEN TEST NORMAL; ARTERIAL BLOOD GAS ART SITE LEFT RADIAL; ARTERIAL BLOOD GAS DELIVERY ROOM AIR; ARTERIAL BLOOD GAS PCO2 19.5 mmHg (35.0-45.0); ARTERIAL DRAW? YES
[2017-03-29 16:43] LABS: ALBUMIN SERUM 3.3 g/dL (3.5-5.0); BETA HYDROXYBUTYRATE 7.16 MMOL/L (0.02-0.27); BILIRUBIN, DIRECT 0.2 mg/dL (0.0-0.2); BILIRUBIN,INDIRECT 1.8 mg/dL (0.0-0.9); BUN/CREATININE RATIO 11.66; CALCIUM SERUM 8.5 mg/dL (8.4-10.2); CREATININE SERUM 1.2 mg/dL (0.6-1.4); POTASSIUM 4.4 mmol/L (3.5-5.1); PROTEIN TOTAL SERUM 6.7 g/dL (6.0-8.3)
[2017-03-29 17:20] LABS: POC - CKMB <1.0 ng/mL (0.0-7.9); POC - TROPONIN <0.05 ng/mL (<=0.05)
[2017-03-29 17:22] LABS: BASOPHIL# 0.1 X10e3 (0-0.3); BASOPHIL% 0.5 % (0-2.5); HEMATOCRIT 35.9 % (35.0-45.0); HEMOGLOBIN 11.4 gm/dL (12.0-16.0); LYMPHOCYTE% 18.8 % (17.0-45.0); MEAN CELL VOLUME 94.5 FL (83-96); MEAN CORPUSCULAR HGB CONC 31.8 g/dL (30-36); MONOCYTE# 0.7 X10e3 (0-1.0); MONOCYTE% 6.7 % (3.0-12.0); NEUTROPHIL# 7.9 X10e3 (1.5-7.1); PLATELET COUNT 331 X10e3 (140-420); RED CELL DISTRIBUTION WIDTH 15.9 % (11.0-15.5); WHITE BLOOD COUNT 10.7 X10e3 (4.0-10.5)
[2017-03-29 17:23] LABS: DIFF IND NO
[2017-03-29 17:34] LABS: PARTIAL THROMBOPLASTIN TIME 23.4 SECONDS (23.5-31.3); PROTHROMBIN TIME (PATIENT) 10.4 SECONDS (10.0-11.7)
[2017-03-29 18:01] LABS: URINE SOURCE CLEAN CATCH
[2017-03-29 18:05] LABS: URINE APPEARANCE CLEAR; URINE BILIRUBIN NEG (NEG); URINE BLOOD 3+ (NEG); URINE COLOR YELLOW; URINE GLUCOSE >1000 MG/DL (NEG); URINE KETONE 3+ (NEG); URINE LEUKOCYTE ESTERASE 2+ (NEG); URINE NITRATE NEG (NEG); URINE PH 5.5 (5-8); URINE PROTEIN NEG (NEG); URINE SPECIFIC GRAVITY 1.028 (1.003-1.035); URINE UROBILINOGEN 0.2 MG/DL (NEG)
[2017-03-29 18:07] LABS: CULTURE INDICATED? YES; URINE BACTERIA AUWI 1+ (NEGATIVE); URINE SQUAMOUS EPITHELIAL CELL OCC /[HPF]; UWBCS1 AUWI 25-50 (0-5)
[2017-03-29] MEDS ORDERED: PANTOPRAZOLE SO40 MG PO (18:17)
[2017-03-29] MEDS ORDERED: SYMBICORT INH (18:17)
[2017-03-29 18:24] LABS: AMPHETAMINE NEG (NEG); BARBITURATES NEG (NEG); BENZODIAZEPINES NEG (NEG); COCAINE NEG (NEG); MARIJUANA NEG (NEG); OPIATES NEG (NEG); TRICYCLIC ANTIDEPRESSANTS NEG (NEG); U METHADONE NEG (NEG)
[2017-03-29 19:10] LABS: POC - CKMB <1.0 ng/mL (0.0-7.9); POC - TROPONIN <0.05 ng/mL (<=0.05)
[2017-03-30 01:19] LABS: BUN/CREATININE RATIO 12.3; CALCIUM SERUM 8.2 mg/dL (8.4-10.2); CREATININE SERUM 1.3 mg/dL (0.6-1.4); GLOM FILT RATE Estimated 48.1 mL/min (>60)
[2017-03-30 01:20] LABS: POTASSIUM 5.5 mmol/L (3.5-5.1)
[2017-03-30 02:24] LABS: BUN/CREATININE RATIO 10.66; CALCIUM SERUM 7.9 mg/dL (8.4-10.2); CREATININE SERUM 1.5 mg/dL (0.6-1.4); GLOM FILT RATE Estimated 40.5 mL/min (>60); POTASSIUM 3.7 mmol/L (3.5-5.1)
[2017-03-30 09:46] LABS: CREATININE SERUM 1.3 mg/dL (0.6-1.4); GLOM FILT RATE Estimated 48.1 mL/min (>60)
[2017-03-30 20:30] LABS: CREATININE SERUM 1.1 mg/dL (0.6-1.4); GLOM FILT RATE Estimated 58.9 mL/min (>60); PHOSPHOROUS 1.9 mg/dL (2.5-4.6); POTASSIUM 3.8 mmol/L (3.5-5.1)
[2017-04-01 08:32] LABS: MAGNESIUM 1.6 mg/dL (1.6-3.0); POTASSIUM 4.1 mmol/L (3.5-5.1)
[2017-04-02 03:51] LABS: BASOPHIL% 0.8 % (0-2.5); EOSINOPHIL% 0.2 % (0.0-7.0); HEMATOCRIT 27.9 % (35.0-45.0); LYMPHOCYTE# 1.4 X10e3 (1.0-3.5); LYMPHOCYTE% 31.9 % (17.0-45.0); MEAN CELL VOLUME 93.1 FL (83-96); MEAN CORPUSCULAR HGB CONC 32.2 g/dL (30-36); MEAN PLATELET VOLUME 8.4 FL (6.5-11.5); MONOCYTE# 0.3 X10e3 (0-1.0); MONOCYTE% 5.9 % (3.0-12.0); NEUTROPHIL# 2.8 X10e3 (1.5-7.1); NEUTROPHIL% 61.2 % (40-75); PLATELET COUNT 204 X10e3 (140-420); RED CELL DISTRIBUTION WIDTH 15.5 % (11.0-15.5); WHITE BLOOD COUNT 4.5 X10e3 (4.0-10.5)
[2017-04-02 03:54] LABS: DIFF IND NO
[2017-04-02 04:14] LABS: BUN/CREATININE RATIO 12.22; CALCIUM SERUM 7.8 mg/dL (8.4-10.2); CREATININE SERUM 0.9 mg/dL (0.6-1.4); GLOM FILT RATE Estimated 75.1 mL/min (>60); MAGNESIUM 1.7 mg/dL (1.6-3.0); POTASSIUM 4.2 mmol/L (3.5-5.1)
[2017-04-03 03:02] LABS: HEMOGLOBIN 9.8 gm/dL (12.0-16.0); MEAN CELL VOLUME 92.6 FL (83-96); MEAN CORPUSCULAR HEMOGLOBIN 30.2 PG (28-34); MEAN CORPUSCULAR HGB CONC 32.6 g/dL (30-36); MEAN PLATELET VOLUME 8.3 FL (6.5-11.5); RED BLOOD COUNT 3.24 X10e (3.90-5.30); RED CELL DISTRIBUTION WIDTH 15.3 % (11.0-15.5); WHITE BLOOD COUNT 6.3 X10e3 (4.0-10.5)
[2017-04-03 03:34] LABS: BUN/CREATININE RATIO 15.55; CALCIUM SERUM 8.1 mg/dL (8.4-10.2); CREATININE SERUM 0.9 mg/dL (0.6-1.4); GLOM FILT RATE Estimated 75.1 mL/min (>60); POTASSIUM 4.1 mmol/L (3.5-5.1)
[2017-04-03] MEDS ORDERED: ACETAMINOPHEN325 MG PO (13:51)
== END 2017-04-03 18:00 | disposition home or self-care (01) | DRG 638 ==
LOC: CED 15:19 → CICCU2 20:15 → CEDOF 20:15 → CED 20:54 → CICCU2 20:54 → CEDOF 20:54 → CICCU2 22:06 → CEDOF 22:06 → CICCU2 22:06 → C4C 04-01 01:43
PROVIDERS: Family Medicine; Internal Medicine; Internal Medicine Gastroenterology; Student in an Organized Health Care Education/Training Program
PROC: 05H433Z Insertion of Infusion Device into Left Innominate Vein, Percutaneous Approach (ICD-10-PCS; 2017-03-30)
PROC: B54NZZA Ultrasonography of Left Upper Extremity Veins, Guidance (ICD-10-PCS; 2017-03-30)
PROC: 0DB78ZX Excision of Stomach, Pylorus, Via Natural or Artificial Opening Endoscopic, Diagnostic (ICD-10-PCS; principal; 2017-04-01 13:00)
DX: E13.10 Other specified diabetes mellitus with ketoacidosis without coma (principal); K22.10 Ulcer of esophagus without bleeding; T82.868A Thrombosis due to vascular prosthetic devices, implants and grafts, initial encounter; N39.0 Urinary tract infection, site not specified; K31.84 Gastroparesis; I10 Essential (primary) hypertension; F41.9 Anxiety disorder, unspecified; F32.9 Major depressive disorder, single episode, unspecified; Z91.14 Patient's other noncompliance with medication regimen; J44.9 Chronic obstructive pulmonary disease, unspecified; E78.5 Hyperlipidemia, unspecified; K29.50 Unspecified chronic gastritis without bleeding; E11.43 Type 2 diabetes mellitus with diabetic autonomic (poly)neuropathy; K29.80 Duodenitis without bleeding; G89.4 Chronic pain syndrome; Z90.49 Acquired absence of other specified parts of digestive tract; M54.9 Dorsalgia, unspecified; Z98.51 Tubal ligation status; Z79.4 Long term (current) use of insulin; Z88.1 Allergy status to other antibiotic agents; Z88.5 Allergy status to narcotic agent; Z88.2 Allergy status to sulfonamides; F17.210 Nicotine dependence, cigarettes, uncomplicated; Z83.3 Family history of diabetes mellitus; Z80.49 Family history of malignant neoplasm of other genital organs; Z79.01 Long term (current) use of anticoagulants; Z86.718 Personal history of other venous thrombosis and embolism; D64.9 Anemia, unspecified
CPT/HCPCS: 36415; 36600; 71010; 80048; 80076; 80307; 81003; 82010; 82150; 82553; 82803; 82947; 83036; 83605; 83690; 83735; 84100; 84132; 84484; 85025; 85027; 85610; 85730; 87040; 87077; 87086; 93005; 93970; 94640; 94664; 94760; 96361; 96374; 96375; 99285; C9113; J0696; J1815; J2250; J2405; J2765; J3475

== ENCOUNTER 2017-04-16 16:31 | Inpatient (IN) | payer OTHER ==
[~2017-04-16] VITALS: Ht 170.2 cm; Wt 105.2 kg
--- NOTE | ~2017-04-16 | CO ---
Unit #: [id number] #: [id number] Patient: SUHAS SOARES [id number] [facility]. [place], [place] [address] [id number] I MR#: [id number] NAME: SUHAS SOARES ROOM: [facility] Age: 51 Sex: F Admission Date: 04/16/2017 : 1965 Attending Physician: Tj Macdonald Primary Care Physician: Jani Doctor Not In System CONSULTATION REPORT We were asked to see her by Dr. Angulo. Reason is sepsis with shock for intensive care management. HISTORY OF PRESENT ILLNESS Ms. Soares is a 51-year-old female with a history of diabetes and apparently was in the hospital just recently and discharged, now presents feeling poorly again. She was found to have elevated blood sugar and hypertension and was thought to be in DKA and shock. She was thought to have sepsis. Her original complaint was actually that her blood sugar was high. She says that she has been feeling poorly all week. She has had some fever and chills all week. She has a cough, but it is mostly nonproductive. She really was not complaining of any chest pain. She is not complaining of any dysuria. She has had some frequency of urination. She did say she was still passing urine when she came in. She did say that she is having some abdominal issues. She was smoking about a pack a day up until just recently, she is saying she stopped. PAST MEDICAL HISTORY Significant for recent discharge for intractable nausea and vomiting. She was admitted on 03/29/2017 and she left on 04/03/2017. She had upper gastrointestinal endoscopy done on 04/01/2017 and she just had erosive esophagitis and some focal patchy erosive duodenitis. History of diabetes mellitus, history of COPD, history of hypertension, history of possible hepatic lesion, but that may have been steatosis, chronic pain syndrome, depression, hyperlipidemia, has a history of back issues. PAST SURGICAL HISTORY Include diskectomy L5 and L4, bladder repair, cholecystectomy, bilateral tubal ligation. MEDICATIONS On admission had included what I would expect to be when she had on discharge and those discharge medicines included potassium chloride 20 mEq p.o. daily, Protonix 40 mg p.o. daily, NovoLog 5 units t.i.d. with meals, Levemir 30 units subcu b.i.d., simvastatin 40 mg p.o. daily, Cymbalta 60 mg p.o. daily, Symbicort 160/4.5 two puffs b.i.d., Ventolin MDI 1 to 2 puffs q.4-6h p.r.n. ALLERGIES Sulfa, erythromycin, Demerol. SOCIAL HISTORY She does smoke a pack a day and now, at some point has quit. Says she Unit #: [id number] #: [id number] Patient: SUHAS SOARES still smokes occasionally. FAMILY HISTORY Significant for COPD, also history of diabetes. REVIEW OF SYSTEMS She did have some nausea. She has difficultly with anorexia lately still. She denied chest pain. She has no leg swelling. She does have generalized pain. She has a cough which is only scantly productive. She has no dysuria as mentioned. She does have frequency of urination. PHYSICAL EXAMINATION GENERAL: She presents as an ill-looking lady in no acute distress. VITAL SIGNS: Temperature is 98, pulse 110, respirations 24, blood pressure 106/61, but at times it dips down much lower than that. NECK: With a left IJ line. LUNGS: Reveals that her breathing is not labored. She had fairly clear breath sounds bilaterally. HEART: Tachycardic. ABDOMEN: Soft, actually nontender. Bowel sounds are present. EXTREMITIES: Without edema. NEUROLOGIC: She is awake. She will speak and she will research laboratory technician bilaterally. DIAGNOSTIC STUDIES LABORATORY RESULTS: Original BMP; potassium was 7.3, sodium 125. Her chloride was 91, bicarb was only 5, anion gap of 29, BUN 38, creatinine 3.0. There was a repeat blood test with a potassium of 4.9, although there was a little suspicion that it may have come from a line and that may be affecting it. Beta hydroxybutyrate 10. White blood cell count was 22.4, H and H 12.3 and 45, platelets 486,000. Blood should be drawn x2. Urine not necessarily sent yet. We do have urinalysis; glucose greater than 1000, protein 1+, white blood cells 0 to 2. IMAGING STUDIES: Chest x-ray seen by me. She has a left IJ line which looks in good position. I see no definite infiltrates. IMPRESSION 1. Sepsis with shock. Mental status seems to be fairly good at this time and she is starting to put out a little bit urine, so I think she is starting to recover a bit. 2. Sepsis based on the lactic acid of 5 and it is severe based on her shock. Source is uncertain. Looking at her x-ray, I do not really see an infiltrate. Urinalysis is not that impressive from an infection standpoint. Certainly, this could be some type of bacteremia, but I am not sure where she would have gotten that. She does have a little lesion on her leg, but it certainly does not look infected. 3. Diabetic ketoacidosis, which is a recurrent problem. 4. Chronic obstructive pulmonary disease. 5. Acute kidney injury. PLAN She will receive significant amount of IV fluids. She has already gotten 2 L, but I have talked to Renal and we can certainly give her more. She will be placed on DKA protocol. She was given Rocephin, but she was just in the hospital. So, I would like to treat her with vancomycin and cefepime. We will repeat a chest x-ray in the morning. Thank you very much for allowing me to participate in the care of this Unit #: [id number] #: [id number] Patient: SUHAS SOARES patient. Dictated by... Supa Andino/erin TD: 04/17/2017 23:26 JOB #: [id number] CONSULTATION REPORT Page 1 of 1 X Peterson Solis MD CONSULTATION REPORT
--- NOTE | ~2017-04-16 | CR72 ---
[facility] A Service of [facility] RADIOLOGY TEXT RESULTS PATIENT: SUHAS YOUNGBLOOD LOCATION: [place] [address] : [birth year] UNIT #: [id number] AGE: [address]: BERTHA TA V SEX: F ORDER DR: [id number] [facility] [address] [facility]. [place], [place] [address] [id number] I MR#: [id number] #: [id number] NAME: SUHAS YOUNGBLOOD. : 1965 SEX: F STUDY DATE/TIME: 04/17/2017 2:23 UNIT: [facility] ROOM: [facility] STUDY DESCRIPTION: CR Chest Single View Portable Attending Physician: Bertha Ta Ordering Physician: Tadeo Savage M.D. Primary Care Physician: Generic Doctor Not In System MEDICAL IMAGING REPORT This report is preliminary unless electronic signature is present EXAM Portable chest INDICATIONS Shortness of air today. PROCEDURE Frontal view chest. COMPARISON 04/16/2017 FINDINGS Heart size is unchanged. No new dense consolidation. Left IJ approach catheter stable. No visible pneumothorax. IMPRESSION Stable Dictated by... Bryan Mccormick M.D. THIS IS AN ELECTRONICALLY VERIFIED REPORT Bryan Mccormick M.D. at 04/17/2017 10:01 PM JOSE LUIS/adeline TD: 04/17/2017 10:11 JOB #: [id number] MEDICAL IMAGING REPORT Page 1 of 1 COPY
--- NOTE | ~2017-04-16 | EKG ---
PATIENT: SUHAS YOUNGBLOOD UNIT #: [id number] Ventricular Rate: 233 BPM Atrial Rate: 125 BPM QRS Duration: 170 ms Q-T Interval: 166 ms QTC Calculation(Bezet): 327 ms Calculated R [place]: 19 degrees Calculated T [place]: 0 degrees Diagnosis Line: Sinus tachycardia Diagnosis Line: tall Peaked T waves, consider HYPERKALEMIA Diagnosis Line: Possible Lateral infarct , age undetermined Diagnosis Line: Abnormal ECG Diagnosis Line: When compared with ECG of 29-MAR-2017 16:15, Diagnosis Line: Sinus tachycardia and tall peaked T waves are now Diagnosis Line: seen. Diagnosis Line: Confirmed by SERGEY LIGHT MD ([id number]) on 04/18/2017 Diagnosis Line: 7:24:00 PM INTERPRETING MD: KULDEEP ARREDONDO
--- NOTE | ~2017-04-16 | DS ---
Unit #: [id number] #: [id number] Patient: SUHAS SOARES [id number] [place], [place] [address] [id number] I MR#: [id number] NAME: SUHAS SOARES. ROOM: 308 Age: 51 Sex: F Admission Date: 04/16/2017 : 1965 Discharge Date: 04/22/2017 Attending Physician: Tj Macdonald M.D. Primary Care Physician: Generic Doctor Not In System DISCHARGE SUMMARY PRINCIPAL DIAGNOSES ON DISCHARGE 1. Severe diabetic ketoacidosis, now resolved. 2. Sepsis with septic shock, resolved. 3. Acute kidney injury, resolved. 4. Clostridium difficile colitis. SECONDARY DIAGNOSES 1. Abdominal pain. 2. Hypophosphatemia. 3. Hypomagnesemia. 4. Chronic obstructive pulmonary disease. 5. Hypertension. 6. History of right upper extremity deep venous thrombosis. 7. Chronic pain syndrome. 8. Depression. 9. Dyslipidemia. CONSULTANTS 1. Intensive care, Dr. Peterson Solis. 2. Cardiology, Dr. Coats. 3. Endocrinology, Dr. Winn. 4. GI, Dr. Owen Aburto. PROCEDURE Colonoscopy with snare polypectomy on April 20, 2017. HISTORY OF PRESENT ILLNESS/BRIEF HOSPITAL COURSE Ms. Soares is a 51-year-old female with multiple co-morbidities including noncompliance and had been recently discharged from the hospital after an admission for nausea, vomiting, and abdominal pain and presented to the emergency room complaining of lethargy. Apparently, her insulin bottle broke down and she had not been able to use it. She was found to have a glycemia of 1078. She was also noted to have a wide complex tachycardia at presentation. She was admitted to intensive care unit where her lactic acid was noted to be 5. Aggressive IV fluid replacement as well as management for DKA was started. Cardiology was consulted. Her tachycardia was attributed to her severe hyperkalemia. Her potassium was initially elevated at 7.3. After a dose of IV fluids and management of DKA with insulin drip, the patient stabilized. She did require amiodarone for a short period of time as well as pressors. After stabilization, the patient was moved out of intensive care unit to a floor on telemetry. She was initially started on IV antibiotics empirically briefly but however, workup could not reveal a source for infection. Her Zosyn and vancomycin Unit #: [id number] #: [id number] Patient: SUHAS SOARES were discontinued. The patient also on admission had elevated creatinine at 3, which improved with management. Today, the patient's main complaint was abdominal pain. This is a chronic issue and during the course of hospitalization GI was consulted and she did undergo a colonoscopy and a polyp was removed. She had diarrhea for some period of time but these resolved and a Clostridium difficile test came back as positive after resolution of her diarrhea. After discussion with the patient that this could be a false positive result, she still wanted to pursue treatment given the chronicity of her symptoms she thinks there may be a chance that this could help her symptomatically. The patient has been started on Flagyl for this. The patient's temperature was 98.3, heart rate 75, blood pressure 142/80. Her potassium was 5, creatinine 0.8. Glucose was 165, and the patient is considered to be stable enough to be discharged home. Endocrinology has seen the patient and her current management of insulin seems to be good enough to control her glycemia for the time being until her followup as an outpatient. DISCHARGE MEDICATIONS 1. Symbicort 160/4.5 mcg one puff daily. 2. Acetaminophen p.r.n. for pain. 3. Simvastatin 40 mg daily. 4. Insulin Levemir 20 units subcutaneous b.i.d. 5. NovoLog insulin 6 units subcutaneous three times a day with meals. 6. Accu-Cheks q.a.c. with sliding scale low dose. 7. Flagyl 500 mg p.o. q.8 hours for six more days. 8. Protonix 40 mg p.o. daily. 9. Albuterol one puff four times a day p.r.n. shortness of breath. FOLLOWUP The patient is scheduled to follow up with her primary care physician within a week. DISPOSITION The patient is being discharged home. CONDITION Improved. The patient was instructed to return to the emergency room in case her symptoms recurred. Dictated by... Supa Cabezas/sarah TD: 04/24/2017 09:00 JOB #: [id number] Unit #: [id number] #: [id number] Patient: SUHAS SOARES Tamir DISCHARGE SUMMARY Page 1 of 1 X X DISCHARGE SUMMARY
--- NOTE | ~2017-04-16 | US6 ---
[facility] A Service of [facility] RADIOLOGY TEXT RESULTS PATIENT: SUHAS YOUNGBLOOD LOCATION: [facility] 308-01 : [birth year] UNIT #: [id number] AGE: [address]: BERTHA TA V SEX: F ORDER DR: [id number] [facility]. [place], [place] [address] [id number] MR#: [id number] Acc #: [id number] NAME: SUHAS YOUNGBLOOD : 1965 SEX: F STUDY DATE/TIME: 04/20/2017 8:48 UNIT: [address] ROOM: [facility] STUDY DESCRIPTION: US Abdominal Limited Attending Physician: Bertha Ta M.D. Ordering Physician: Owen Aburto M.D. Primary Care Physician: Generic Doctor Not In System MEDICAL IMAGING REPORT This report is preliminary unless electronic signature is present EXAM Limited right upper quadrant sonogram HISTORY A 51-year-old female elevated LFTs, prior cholecystectomy. FINDINGS Real-time examination demonstrates a focal area of increased echogenicity within the right hepatic lobe, nonspecific but most likely represents focal fatty infiltration as this does not appear to be masslike. Follow up cross-sectional imaging with liver CT or MRI may be of benefit to confirm the suspected benign nature of this process. No intra or extrahepatic ductal dilatation. Gallbladder surgically absent. Common bile duct measures 2.9 mm. The right kidney unremarkable except for a 5 cm cyst which appears to be off the lower pole of the right kidney. IMPRESSION 1. Focal area of increased echogenicity within the right hepatic lobe most likely represents an area of focal fatty infiltration. 2. Post cholecystectomy. 3. A 5 cm exophytic cyst lower pole right kidney Dictated by... Lilliam De La Cruz M.D. THIS IS AN ELECTRONICALLY VERIFIED REPORT Lilliam De La Cruz M.D. at 04/22/2017 5:12 PM Ken TD: 04/20/2017 23:30 JOB #: [id number] [facility] A Service of [facility] RADIOLOGY TEXT RESULTS PATIENT: SUHAS YOUNGBLOOD LOCATION: [facility] 308-01 : [birth year] UNIT #: [id number] AGE: [address]: CELY,BERTHA V SEX: F ORDER DR: MEDICAL IMAGING REPORT Page 1 of 1 COPY
--- NOTE | ~2017-04-16 | EKG ---
PATIENT: SUHAS YOUNGBLOOD UNIT #: [id number] Ventricular Rate: 117 BPM Atrial Rate: 117 BPM P-R Interval: 126 ms QRS Duration: 82 ms Q-T Interval: 348 ms QTC Calculation(Bezet): 485 ms P [place]: 79 degrees Calculated R [place]: 51 degrees Calculated T [place]: 17 degrees Diagnosis Line: Sinus tachycardia Diagnosis Line: Low voltage QRS Diagnosis Line: Septal infarct , age undetermined Diagnosis Line: Abnormal ECG Diagnosis Line: When compared with ECG of 16-APR-2017 16:48, Diagnosis Line: (unconfirmed) Diagnosis Line: Sinus rhythm has replaced Wide QRS tachycardia Diagnosis Line: Vent. rate has decreased BY 116 BPM Diagnosis Line: Confirmed by TREASURE SAM MD ([id number]) on Diagnosis Line: 04/17/2017 8:07:19 AM INTERPRETING MD: CECY ARREDONDO
--- NOTE | ~2017-04-16 | A ---
[facility] Nutrition Therapy DATE: 04/17/17 Patient: SUHAS YOUNGBLOOD Physician: LALA Address: [address] [place] [address] Room/Bed: [address], Zip: [place] [address] Admit Date: 04/16/17 Date of : [birth year] Height: 5 7 Weight: 220 100 NUTRITIONAL ASSESSMENT: REASON: NPO IN ICU ASSESSMENT + DX PT IS 51 Y.O. FEMALE ADMITTED FOR DKA, SEPTIC SHOCK, NAN PMH: DM, COPD, HTN, HLD, STROKE, NONCOMPLIANCE, DEPRESSION, ANXIETY, PREVIOUS DKA, GASTROPARESIS Anthropometrics: 5'10", WT: 220# (100 KG), BMI: 31.6 Labs: GLU: 31, CREAT: 2.0, CA+:7.7, MG+:1.5, A1c: 10.7 (03/29/17), GFR: 28.6 Meds: D5%, KCL, MAG SULFATE, ZOFRAN, NACL I/O & Bowel function: 3623/1000 Skin Integrity: BLE SCAR; RLE SCAB NOTED Assessment: CHART REVIEWED AND EVENTS NOTED. PT SEEN FOR DX + NPO IN ICU ASSESSMENT. OF NOTE, RD ASSESSED PT BACK IN JANUARY AND MARCH 2017. PER RN AND CHART, PT NPO 2' DKA PROTOCOL. PT SLEEPY/LETHARGIC AT TIME OF VISIT REPORTING DECREASED PO INTAKE AND APPETITE 2' FEELING NAUSEOUS AND UPSET STOMACH PAST 4-5 DAYS (N/V/D NOTED). PT ADDS "MY BOTTLE OF INSULIN BROKE AND UNABLE TO USE INSULIN FOR THE PAST SEVERAL DAYS". PT DENIES ANY RECENT WEIGHT LOSS. THIS RD ATTEMPTED TO PROVIDE VERBAL CC DIET EDUCATION BUT PT NOT APPROPRIATE FOR DIET EDUCATION AT THIS TIME. RD LEFT WRITTEN CC DIET EDUCATION AT BEDSIDE. RD TO FOLLOW. Dx: INADEQUATE PROTEIN-ENERGY INTAKE R/T N/V/D, CURRENT CONDITION AEB NPO STATUS, PT REPORT ABOVE. -IMPAIRED GLYCEMIC CONTROL R/T LIFESTYLE, NON-COMPLIANCE, PMH, DX AEB ELEVATED BLOOD SUGAR AT ADMIT, A1c OF 10.7, PREVIOUS DKA. Intervention: 1. NPO 2. DIET EDUCATION (ATTEMPT) Monitoring, Evaluation and Goals: 1. ORAL INTAKE; ONCE DIET IS ADVANCED, CONSUME/TOLERATE >50% OF MEALS 2. LABS; GLU, A1c, LYTES 3. WEIGHTS; PROMOTE GRADUAL WEIGHT LOSS TOWARDS HEALTHY BMI MONITOR: -DIET ADVANCEMENT -PO INTAKE/APPETITE [facility] Nutrition Therapy DATE: 04/17/17 Patient: SUHAS YOUNGBLOOD Physician: LALA Address: [address] [place] [address] Room/Bed: [address], Zip: [place] [address] Admit Date: 04/16/17 Date of : [birth year] Height: 5 7 Weight: 220 100 -WEIGHTS -EDUCATION NEEDS Recommendations: 1. ONCE MEDICALLY FEASIBLE, ADVANCE DIET INDICATED TO CC 2'DX, PMH 2. ORDER GLUCERNA SHAKES BID, ONCE DIET ADVANCES FOR ADDITIONAL PROTEIN AND KCAL 3. RD TO PROVIDE CC DIET EDUCATION AT F/U RD WILL F/U PER PROTOCOL PT IS MILD/MODERATELY COMPROMISED Respectfully, JACY BRUNO MS, RD, LD Food and Nutritional Services [facility] cc: client file
--- NOTE | ~2017-04-16 | EKG ---
PATIENT: SUHAS YOUNGBLOOD UNIT #: [id number] Ventricular Rate: 74 BPM Atrial Rate: 74 BPM P-R Interval: 150 ms QRS Duration: 88 ms Q-T Interval: 458 ms QTC Calculation(Bezet): 508 ms P Juda: 50 degrees Calculated R Juda: 13 degrees Calculated T Juda: 21 degrees Diagnosis Line: Normal sinus rhythm Diagnosis Line: Prolonged QT Diagnosis Line: Abnormal ECG Diagnosis Line: When compared with ECG of 16-APR-2017 17:56, Diagnosis Line: Vent. rate has decreased BY 43 BPM Diagnosis Line: Criteria for Septal infarct are no longer Present Diagnosis Line: Nonspecific T wave abnormality now evident in Diagnosis Line: Anterior leads Diagnosis Line: Confirmed by SERGEY LIGHT MD ([id number]) on 04/18/2017 Diagnosis Line: 7:24:18 PM INTERPRETING MD: KULDEEP ARREDONDO
--- NOTE | ~2017-04-16 | CO ---
Unit #: [id number] #: [id number] Patient: SUHAS YOUNGBLOOD [id number] [address] [place], [place] [address] [id number] I MR#: [id number] NAME: SUHAS YOUNGBLOOD. ROOM: [facility] Age: 51 Sex: F Admission Date: 04/16/2017 : 1965 Attending Physician: Tj Macdonald Primary Care Physician: Jani Doctor Not In System CONSULTATION REPORT TYPE OF CONSULTATION Cardiology REASON FOR CONSULTATION Arrhythmia. HISTORY OF PRESENT ILLNESS This is a 51-year-old, white female, who was admitted with recurrent diabetic ketoacidosis. The patient was recently discharged from this facility on April 03 for DKA. She states since her discharge she has had persistent abdominal pain with nausea and loose stools. Yesterday, her insulin bottle broke. Her glucose at her last check was 149. Apparently, she became confused and does not remember the details, but she awakened in the emergency room. Her blood glucose per laboratory values was 1078. An electrocardiogram was obtained, which felt the patient was in atrial fibrillation with a wide-complex rhythm. She was started on amiodarone intravenously. She was severely hyperkalemic with potassium level of 7.3. Creatinine of 3.0. The patient says she had no complaint of chest pain or shortness of breath. She denies syncope or near syncope. No palpitations. She has not been able to eat or drink well and has some dizziness. PAST MEDICAL HISTORY 1. Hypertension. 2. Hyperlipidemia. 3. Insulin-dependent diabetes mellitus, type 2. 4. COPD. 5. Stress test six years ago, no details available. 6. Right upper extremity deep vein thrombosis. 7. Chronic pain syndrome. 8. Active smoker. PAST SURGICAL HISTORY 1. Bladder repair. 2. Laparoscopic cholecystectomy. 3. Back surgery. 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 She does still smokes a few cigarettes a day, but previously smoked a pack of cigarettes daily. She denies illicit drug use and drinks alcohol on rare occasions. Unit #: [id number] #: [id number] Patient: SUHAS YOUNGBLOOD FAMILY HISTORY Positive for coronary artery disease in her father. ALLERGIES Sulfa, erythromycin, lidocaine, methyl salicylate, and Demerol. HOME MEDICATIONS 1. Lisinopril 10 mg daily. 2. Flonase one spray each nostril daily. 3. Fenofibrate 60 mg daily. 4. Duloxetine 30 mg daily. 5. Protonix 40 mg daily. 6. Lyrica 150 mg daily. 7. Potassium chloride 20 mEq daily. 8. Simvastatin 40 mg daily. 9. NovoLog. REVIEW OF SYSTEMS CONSTITUTIONAL: Positive for weakness and fatigue. No weight gain or weight loss. Denies chills or fever. HEENT: No headache, hearing or vision changes, difficulty with swallowing. Has occasional dizziness. CARDIOVASCULAR: Has no symptoms of angina. Denies palpitations. Denies syncope or near syncope. RESPIRATORY: Negative for dyspnea. Reports a frequent nonproductive cough. No hemoptysis. GASTROINTESTINAL: Positive for abdominal pain, nausea, and diarrhea. Had loose stools. Denies hematochezia, hematemesis, or melena. EXTREMITIES: Negative for lower extremity edema. PHYSICAL EXAMINATION VITAL SIGNS: Blood pressure 102/60, heart rate 70, and temperature 98.4. BMI is 34. GENERAL: This is a mildly-obese, 51-year-old, young, white female, who is in no acute respiratory distress. NEUROLOGIC: She is awake, alert, and oriented. There are no focal weaknesses. NECK: Trachea is midline. No thyromegaly or lymphadenopathy. No jugular venous distention. HEART: S1 and S2. Heart sounds are normal. No murmurs. No rubs or clicks. Regular rate and rhythm. LUNGS: Clear without rales, rhonchi, or wheezes. ABDOMEN: Soft and tender with palpation in all quadrants. Bowel sounds are positive. No organomegaly. EXTREMITIES: With palpable pedal pulses and no leg edema. DIAGNOSTIC STUDIES Laboratory results: Hemoglobin is 12.3, hematocrit 45.3, platelet count 486, and white count 22.4. Sodium 137, potassium 3.5, BUN 31, creatinine 3.0, glucose is 84, and magnesium 1.5. DIAGNOSTIC IMAGING IMAGING STUDIES: Chest x-ray shows no active disease. CARDIOVASCULAR STUDIES: Electrocardiogram shows sinus tachycardia, rate of about 150 beats per minute with peaked T-waves noted in the inferior leads and anterolateral leads. Unit #: [id number] #: [id number] Patient: SUHAS YOUNGBLOOD IMPRESSION 1. Septic shock. 2. Diabetic ketoacidosis. 3. Acute kidney injury. 4. Hyperkalemia, resolved. 5. Hypomagnesemia. 6. Hypertension. 7. Hyperlipidemia. 8. Nicotine abuse. 9. Chronic pain syndrome. PLAN 1. Cardiology was consulted for evaluation of arrhythmias. Review of the electrocardiogram shows findings consistent with severe hyperkalemia with peaked T-waves. There is no atrial fibrillation. Heart rate is currently stable. Her potassium level was 7.3 on admission that has been corrected. We will repeat electrocardiogram. 2. The patient was started on IV amiodarone. There was no evidence of ventricular or atrial arrhythmias. We will discontinue it. Amiodarone can further impact her GI issues. 3. We will check TSH and evaluate. 4. Echocardiogram will be done for the left ventricular systolic function. 5. If echocardiogram is normal, do not anticipate any additional cardiac workup at this time. 6. Further recommendations per Dr. Nath. Thank you for allowing us to assist with this patient's care. Dictated by... Mao CalixPNaiRNaiNNai for AEP/modl TD: 04/18/2017 07:26 JOB #: [id number] CONSULTATION REPORT Page 1 of 1 X Devon Ramos APRN X CONSULTATION REPORT
--- NOTE | ~2017-04-16 | CR72 ---
[facility] A Service of [facility] & [facility] RADIOLOGY TEXT RESULTS PATIENT: SUHAS YOUNGBLOOD LOCATION: [facility] 308- : [birth year] UNIT #: [id number] AGE: [address]: BERTHA TA V SEX: F ORDER DR: [id number] [facility] [address]. [place], [place] [address] [id number] I MR#: [id number] Acc #: [id number] NAME: SUHAS YOUNGBLOOD. : 1965 SEX: F STUDY DATE/TIME: 04/18/2017 6:01 UNIT: [address] ROOM: [facility] STUDY DESCRIPTION: CR Chest Single View Portable Attending Physician: Bertha Ta Ordering Physician: Astrid Coleman M.D. Primary Care Physician: Generic Doctor Not In System MEDICAL IMAGING REPORT This report is preliminary unless electronic signature is present EXAM Portable chest. INDICATIONS Tachycardia, shortness of breath, diabetic ketoacidosis, symptoms for 2 days. COMPARISON Comparison with yesterday. FINDINGS No new infiltrates. Heart size stable. Stable left IJ central venous catheter. IMPRESSION No significant change in the appearance of the chest. Dictated by... Teo De La Cruz M.D. THIS IS AN ELECTRONICALLY VERIFIED REPORT Teo De La Cruz M.D. at 04/19/2017 5:00 PM ARS/tiffany TD: 04/18/2017 14:07 JOB #: [id number] MEDICAL IMAGING REPORT Page 1 of 1 COPY
--- NOTE | ~2017-04-16 | HP ---
Unit #: [id number] #: [id number] Patient: SUHAS YOUNGBLOOD [id number] [address] [place], [place] [address] [id number] I MR#: [id number] NAME: SUHAS YOUNGBLOOD. ROOM: 86435 Age: 51 Sex: F Admission Date: 04/16/2017 : 1965 Attending Physician: Mulu Anguol M.D. HISTORY AND PHYSICAL CHIEF COMPLAINT High blood sugar. HISTORY OF PRESENT ILLNESS The patient is a 51-year-old female with a history of insulin-dependent diabetes mellitus, COPD, and hyperlipidemia, brought to the emergency room with high sugars and decreased mental status. The patient stated that patient's insulin bottle broke down, and he was unable to take the insulin this morning. The patient's fiance went to get the insulin; however, the patient became more lethargic and presented to the emergency room with sugars in the range of 1078. The patient also complains of generalized body pain, fatigue, and lethargy. The patient is a poor historian, and the history is obtained by speaking to the ER physician and the nurse at the bedside. The patient has had multiple admissions in the past for similar reasons with noncompliance. Patient was also found to be in wide complex tachycardia at the time of presentation with a rate of 233 beats per minute. The patient received a loading dose of amiodarone and was started on an amiodarone drip for the wide complex tachycardia, and the rhythm changed to sinus tachycardia. PAST MEDICAL HISTORY 1. Hypertension. 2. Chronic obstructive pulmonary disease. 3. Insulin-dependent diabetes mellitus. 4. She was recently diagnosed with a right upper extremity DVT. 5. Chronic pain syndrome due to chronic neck and back pain. 6. Depression. 7. Hyperlipidemia. PAST SURGICAL HISTORY 1. Discectomy. 2. Bladder repair. 3. Cholecystectomy. 4. Bilateral tubal ligation. ALLERGIES Sulfa, erythromycin, and Demerol. HOME MEDICATIONS From the list: 1. Flonase. 2. Lisinopril. 3. NovoLog. 4. Fenofibrate. Unit #: [id number] #: [id number] Patient: SUHAS YOUNGBLOOD 5. Duloxetine. 6. Protonix. 7. Lyrica. 8. Potassium. 9. Simvastatin. SOCIAL HISTORY History of occasionally smoking cigarettes. No alcohol or drug abuse. FAMILY HISTORY Diabetes and COPD. REVIEW OF SYSTEMS A 14-point review of systems was performed and only pertinent positive findings are described above. The remaining are negative. PHYSICAL EXAMINATION GENERAL: Patient is lying in bed not in acute distress. VITAL SIGNS: Temperature 90.7, pulse 179, respiratory rate 38, blood pressure 91/67, and saturating 99% on 2 liters. HEENT: Head atraumatic, normocephalic. Pupils equal, round, and reactive to light and accommodation. Dry mucous membranes. NECK: Supple. LUNGS: Decreased air entry at bases. Coarse breath sounds. HEART: Irregular rate and rhythm. Positive for murmur. ABDOMEN: Soft. Positive bowel sounds. EXTREMITIES: No cyanosis, no clubbing. Old scarring from diabetic necrobiosis. NEUROLOGIC: Alert, awake, and oriented. More lethargic. DIAGNOSTIC STUDIES LABORATORY: Troponin less than 0.05. Lactic acid is 5. WBC 22.4, hemoglobin 12.3, hematocrit 45.3, and platelets 486,000 with bands of 5%. Urinalysis shows 1+ protein and more than 1000 glucose. Sodium 125, potassium 7.3, chloride 91, BUN 38, creatinine 3, and alkaline phosphatase 174. Beta hydroxybutyrate 10.25. Sugar is down to 579. IMAGING: Chest x-ray shows left IJ central position. No pneumothorax. ASSESSMENT 1. Septic shock. 2. Diabetic ketoacidosis. 3. Acute kidney injury. 4. Hyperkalemia. 5. Wide complex arrhythmia. PLAN Admit the patient to the ICU. Patient will be started on septic shock protocol and IV antibiotics with empiric Zosyn. Patient will be seen by consultants with Pulmonary as seen by (1) in the past and Cardiology for the wide complex arrhythmias on amiodarone. Continue amiodarone drip. Patient has received sodium bicarbonate, calcium, and Kayexalate. Follow with a Renal consult for the hyperkalemia and acute kidney injury. Patient was started on pressor with Levophed and keep the MAP 65-70%. Patient received empiric Rocephin in the ER one gram. Endocrine consult for the DKA, the insulin, and fluids. Follow the septic shock protocol for fluid management as not done in the ER. He received only two liters of IV fluids for unknown reasons. Further recommendations Unit #: [id number] #: [id number] Patient: SUHAS YOUNGBLOOD will follow. Prognosis is guarded. Dictated by Supa Burr TD: 04/16/2017 20:58 JOB #: [id number] HISTORY AND PHYSICAL Page 1 of 1 X MULU ANGULO MD X HISTORY AND PHYSICAL
--- NOTE | ~2017-04-16 | OR ---
Unit #: [id number] #: [id number] Patient: SUHAS YOUNGBLOOD [id number] [address] [place], [place] [address] [id number] I MR#: [id number] NAME: SUHAS YOUNGBLOOD. ROOM: 308 Date of Procedure: 04/20/2017 Admission Date: 04/16/2017 Surgeon: Owen Aburto M.D. : 1965 Attending Physician: Tj Macdonald M.D. Primary Care Physician: Generic Doctor Not In System OPERATIVE REPORT JOB NOTE: CC: PRIMARY CARE PHYSICIAN PROCEDURE PERFORMED Colonoscopy with snare polypectomy. INDICATIONS FOR PROCEDURE The patient with gradually worsening anemia, Hemoccult-positive stool suggest chronic occult blood loss. MEDICATIONS Monitored anesthesia. POSTOPERATIVE FINDINGS 1. Colonoscopy completed to cecum. Prep was adequate. 2. 5 mm polyp in transverse colon, snared and sent for histopathology. 3. Internal hemorrhoids. 4. No large polyps, masses, or other bleeding lesions were seen. PLAN Continue watch H and H. Follow up on pathology report. DESCRIPTION OF PROCEDURE The patient was explained of the procedure, risks, and benefits along with risks and benefits of anesthesia. She was brought to the endoscopy room. Propofol anesthesia was given. Rectal exam was done, which was normal. Colonoscope was lubricated, passed up the rectum, advanced under direct vision all the way to cecum. Cecum was identified by ileocecal valve and appendiceal orifice. At this point, I started to pull the scope out carefully looking. No other abnormalities were seen. I retroflexed in the rectum, internal hemorrhoids noted. Gently, the scope was pulled out. She tolerated it well. No major complications were seen. Dictated by... Supa Arevalo/erin TD: 04/20/2017 15:51 JOB #: [id number] Unit #: [id number] #: [id number] Patient: SUHAS YOUNGBLOOD OPERATIVE REPORT Page 1 of 1 X Owen Aburto MD PROCEDURE OPERATIVE NOTE
--- NOTE | ~2017-04-16 | CR72 ---
[facility] A Service of [facility] & [facility] RADIOLOGY TEXT RESULTS PATIENT: SUHAS YOUNGBLOOD LOCATION: [address] : [birth year] UNIT #: [id number] AGE: [address]: MULU ANGULO MD SEX: F ORDER DR: [id number] [facility] [address] [place], [place] [address] [id number] I MR#: [id number] #: [id number] NAME: SUHAS YOUNGBLOOD. : 1965 SEX: F STUDY DATE/TIME: 04/16/2017 17:37 UNIT: [facility] ROOM: [facility] STUDY DESCRIPTION: CR Chest Single View Portable Attending Physician: Mulu Angulo M.D. Ordering Physician: Tadeo Savage M.D. Primary Care Physician: Generic Doctor Not In System MEDICAL IMAGING REPORT This report is preliminary unless electronic signature is present EXAM Single view chest INDICATION Central line placement. Altered mental status. FINDINGS Single portable AP view of the chest compared to 03/29/2017. Heart and mediastinal contours are unchanged. Lungs are clear. There is a left IJ central line with the tip terminating over the SVC. No pneumothorax. IMPRESSION Left IJ central line terminates over the SVC. No pneumothorax. Dictated by... Carl Quispe M.D. THIS IS AN ELECTRONICALLY VERIFIED REPORT Carl Quispe M.D. at 04/17/2017 8:13 AM OREN/jorge TD: 04/17/2017 06:48 JOB #: [id number] MEDICAL IMAGING REPORT Page 1 of 1 COPY
--- NOTE | ~2017-04-16 | CO ---
Unit #: [id number] #: [id number] Patient: SUHAS SOARES [id number] [address] [place], [place] [address] [id number] I MR#: [id number] NAME: SUHAS SOARES. ROOM: [facility] Age: 51 Sex: F Admission Date: 04/16/2017 : 1965 Attending Physician: Tj Macdonald Primary Care Physician: Jani Doctor Not In System CONSULTATION REPORT REASON FOR CONSULTATION Acute kidney injury and hyperkalemia. HISTORY OF PRESENT ILLNESS Ms. Soares is a 51-year-old white female with past medical history of diabetes mellitus, insulin dependent; noncompliance; hypertension; and dyslipidemia, who presented to the hospital with nausea, vomiting, and she was found to have blood sugar above 1000. Her blood work showed sodium of 125, potassium 7.3, bicarb of 5, chloride 91, BUN of 38, and creatinine of 3. Apparently, the patient was hypertensive at the time of admission. Frances catheter was placed with a total of 50 mL of urine over the last 4 hours. The lactic acid was 5 as well. The patient's urinalysis is significant for mild proteinuria, but no white blood cells or RBC. The patient reported some chills at home, but denied having fever. She claimed that her insulin bowl broke today, her daughter was at the bedside. PAST MEDICAL HISTORY As mentioned above; 1. Insulin dependent diabetes mellitus. 2. Hypertension. 3. DVT. 4. Dyslipidemia. 5. History of duodenitis and gastritis in the past. 6. History of gastroparesis. HOME MEDICATIONS Include; 1. Potassium chloride. 2. Protonix. 3. NovoLog. 4. Levemir. 5. Simvastatin. 6. Cymbalta. 7. Symbicort. 8. Ventolin. PAST SURGICAL HISTORY Include; 1. Bladder repair surgery. 2. Diskectomy L4 and L5. 3. Cystectomy. 4. Bilateral tubal ligation. ALLERGIES Unit #: [id number] #: [id number] Patient: SUHAS SOARES Sulfa, erythromycin and Demerol. SOCIAL HISTORY The patient continues to smoke, DNI'd acute drinking or elective drug abuse. FAMILY HISTORY Significant for diabetes and COPD as well as coronary artery disease. REVIEW OF SYSTEMS A 12-point review of systems was conducted and they are all negative except what is per history of present illness. PHYSICAL EXAMINATION GENERAL: Alert and oriented x3, in no acute distress. VITAL SIGNS: Temperature 98, heart rate 110, respiratory rate 24, blood pressure 87/65. HEENT: Normocephalic and atraumatic. Pupils are equal, round, and reactive to light and accommodation. Extraocular muscle intact. NECK: No JVD. No lymphadenopathy. CHEST: Clear to auscultation bilaterally. HEART: Regular rate and rhythm. S1 and S2 normal. ABDOMEN: Bowel sounds positive. No tenderness. No guarding. EXTREMITIES: No edema. No cyanosis. No clubbing. DIAGNOSTIC STUDIES LABORATORY RESULTS: Sodium 125, potassium 7.3, bicarb 5, chloride 91, BUN 38, creatinine 3, calcium 9. White blood cell 22, hematocrit 44, MCV 114, platelets 486. EKG showed hyperacute T-wave with widening QRS. ASSESSMENT AND PLAN 1. Acute kidney injury associated with severe hyperkalemia and EKG changes consistent with hyperkalemia. We will continue aggressive IV hydration and maintain MAP above 65. We will repeat her labs stat if her potassium remain above 6, I am going to proceed with dialysis stat as the patient remains oliguric since the time of admission. 2. Hyperkalemia associated with her acute kidney injury. 3. Metabolic acidosis due to her diabetic ketoacidosis and poorly controlled diabetes mellitus with noncompliance. 4. Dyslipidemia. 5. Anemia. 6. History of depression. Dictated by... Supa To/erin TD: 04/17/2017 15:01 JOB #: [id number] Unit #: [id number] #: [id number] Patient: SUHAS SOARES CONSULTATION REPORT Page 1 of 1 X X CONSULTATION REPORT
--- NOTE | ~2017-04-16 | CO ---
Unit #: [id number] #: [id number] Patient: SUHAS YOUNGBLOOD [id number] [address] [place], [place] [address] [id number] MR#: [id number] NAME: SUHAS YOUNGBLOOD. ROOM: 308 Age: 51 Sex: F Admission Date: 04/16/2017 : 1965 Attending Physician: Tj Macdonald M.D. Primary Care Physician: Generic Doctor Not In System Consultation Date: 04/17/2017 CONSULTATION REPORT REASON FOR CONSULTATION Diabetes ketoacidosis. HISTORY OF PRESENT ILLNESS This is a 51-year-old female, who has a history of type 1 diabetes mellitus with history of DKA in the past, who reports that she dropped her insulin bottle and she did not have any insulin all day yesterday. Her blood sugars went very high. She started feeling weak, lethargic increased and started having abdominal pain, nausea, and vomiting, came to the emergency room, she was found to be in a diabetic ketoacidosis with a pH of 6.8, bicarb of 4, and potassium of 7.3, glucose was above 1000. White cell count was 22,000. She is started on insulin drip, IV antibiotics, IV fluids, and admitted to the unit bed. The patient is being seen in ICU at this time. She is awake and alert. Reports to be feeling much better. Additionally in the ER, the patient had a wide-complex tachycardia for which she received amiodarone. MEDICAL HISTORY Type 1 diabetes mellitus, COPD, hypertension, depression, hyperlipidemia. SURGICAL HISTORY Bladder repair, cholecystectomy, bilateral tubal ligation. ALLERGIES To sulfa, erythromycin, and Demerol. HOME MEDICATIONS Reports she was taking the Levemir or Lantus 60 units at night and NovoLog 30 units each meal. Currently, the patient is on insulin drip. Other medications include Cymbalta, Protonix, Lyrica, Simvastatin. SOCIAL HISTORY Currently smoking cigarettes. Declines alcohol. REVIEW OF SYSTEMS A 12-point review of system was completed. Please see HPI. Otherwise, the patient has no complaints at this point. PHYSICAL EXAMINATION GENERAL: She is awake, alert, oriented to time, place, and person, comfortable in the bed. VITAL SIGNS: Temperature 97.8, pulse 76, respirations 15, blood pressure is low at 84/41. HEENT: EOMI. Pupils equally reactive to light. Unit #: [id number] #: [id number] Patient: SUHAS YOUNGBLOOD NECK: Supple. No thyromegaly noted. CHEST: Good air entry. CVS: Regular rhythm. No murmurs. ABDOMEN: Soft and nontender. Bowel sounds positive. EXTREMITIES: No edema or ulcers are noted. DIAGNOSTIC STUDIES LABORATORY RESULTS: Reviewed. Creatinine is 1.7, CO2 is 19, phosphorus 3.1, magnesium is 1.5. A1c 10.7. Positive ketones. ASSESSMENT 1. Diabetes ketoacidosis, which is improved. 2. Hyperkalemia, resolved. 3. Acute kidney injury, improving. 4. Hypomagnesemia. PLAN Continue insulin drip today. Continue IV fluids. The patient is already being seen by the Renal. Monitor electrolytes and replace as needed. In the morning, the patient will be started on subcu insulin, Levemir 30 units in the morning daily and NovoLog 8 units each meal. Advance diet in the morning to CCD 45 to 60 g per meal. Cover with supplemental insulin. Insulin drip will be discontinued tomorrow morning. Thanks again for consultation. Dictated by... Supa Guzmán/erin TD: 04/18/2017 13:43 JOB #: [id number] CONSULTATION REPORT Page 1 of 1 X Tika Winn MD CONSULTATION REPORT
[~2017-04-16 16:31] MED LIST changes: +ACETAMINOPHEN325 MG PO; +PANTOPRAZOLE SO40 MG PO
[2017-04-16 17:18] LABS: POC - CKMB 1.6 ng/mL (0.0-7.9); POC - TROPONIN <0.05 ng/mL (<=0.05)
[2017-04-16 17:41] LABS: BASOPHIL# 0.1 X10e3 (0-0.3); BASOPHIL% 0.6 % (0-2.5); EOSINOPHIL% 0.1 % (0.0-7.0); HEMATOCRIT 45.3 % (35.0-45.0); HEMOGLOBIN 12.3 gm/dL (12.0-16.0); LYMPHOCYTE# 3.2 X10e3 (1.0-3.5); LYMPHOCYTE% 14.4 % (17.0-45.0); MEAN CORPUSCULAR HGB CONC 27.2 g/dL (30-36); MEAN PLATELET VOLUME 8.3 FL (6.5-11.5); MONOCYTE# 0.8 X10e3 (0-1.0); MONOCYTE% 3.4 % (3.0-12.0); NEUTROPHIL# 18.3 X10e3 (1.5-7.1); NEUTROPHIL% 81.5 % (40-75); PLATELET COUNT 486 X10e3 (140-420); RED BLOOD COUNT 3.97 X10e (3.90-5.30); RED CELL DISTRIBUTION WIDTH 16.8 % (11.0-15.5); WHITE BLOOD COUNT 22.4 X10e3 (4.0-10.5)
[2017-04-16 17:45] LABS: DIFF IND YES
[2017-04-16 17:52] LABS: ALBUMIN SERUM 3.8 g/dL (3.5-5.0); ALKALINE PHOSPHATASE 174 U/L (32-92); ALT (SGPT) 19 U/L (10-40); AST (SGOT) 23 U/L (10-42); BLOOD UREA NITROGEN 38 mg/dL (9-23); BUN/CREATININE RATIO 12.66; CHLORIDE 91 mmol/L (100-111); GLOM FILT RATE Estimated 17.5 mL/min (>60)
[2017-04-16 17:54] LABS: BILIRUBIN, DIRECT <0.1 mg/dL (0.0-0.2); BILIRUBIN,INDIRECT 1.9 mg/dL (0.0-0.9); CARBON DIOXIDE 5 mmol/L (22-31); POTASSIUM 7.3 mmol/L (3.5-5.1); SODIUM 125 mmol/L (135-145)
[2017-04-16 18:05] LABS: ANISOCYTOSIS MOD; GLUCOSE FASTING 1078 mg/dL (70-110); PLATELET ESTIMATE NORMAL (NORMAL); POIKILOCYTOSIS SL
[2017-04-16 18:09] LABS: URINE SOURCE CATH
[2017-04-16 18:14] LABS: URINE APPEARANCE CLEAR; URINE BILIRUBIN NEG (NEG); URINE BLOOD NEG (NEG); URINE COLOR YELLOW; URINE GLUCOSE >1000 MG/DL (NEG); URINE KETONE 3+ (NEG); URINE LEUKOCYTE ESTERASE NEG (NEG); URINE NITRATE NEG (NEG); URINE PROTEIN 1+ (NEG); URINE SPECIFIC GRAVITY 1.023 (1.003-1.035); URINE UROBILINOGEN 0.2 MG/DL (NEG)
[2017-04-16 18:16] LABS: URBCS1 AUWI 0-2 /[HPF] (0-2); URINE BACTERIA AUWI NEG (NEGATIVE); URINE SQUAMOUS EPITHELIAL CELL OCC /[HPF]; UWBCS1 AUWI 0-2 (0-5)
[2017-04-16 18:18] LABS: CULTURE INDICATED? NO
[2017-04-16 18:28] LABS: BETA HYDROXYBUTYRATE 10.25 MMOL/L (0.02-0.27)
[2017-04-16 21:15] LABS: BUN/CREATININE RATIO 12.66; CALCIUM SERUM 8.9 mg/dL (8.4-10.2); GLOM FILT RATE Estimated 17.5 mL/min (>60); POTASSIUM 4.9 mmol/L (3.5-5.1)
[2017-04-16 22:22] LABS: BUN/CREATININE RATIO 12.06; CALCIUM SERUM 8.5 mg/dL (8.4-10.2); CREATININE SERUM 2.9 mg/dL (0.6-1.4); GLOM FILT RATE Estimated 18.2 mL/min (>60); POTASSIUM 4.9 mmol/L (3.5-5.1)
[2017-04-16 23:43] LABS: ARTERIAL BLD GAS O2 SATURATION 97.2 % (90.0-100.0); ARTERIAL BLOOD GAS CARBOXY HB 0.9 %sat (0.0-9.0); ARTERIAL BLOOD GAS HCO3 12.1 mmol/L; ARTERIAL BLOOD GAS MET HB 1.1 %sat (0.0-2.0); ARTERIAL BLOOD GAS PCO2 21.4 mmHg (35.0-45.0)
[2017-04-16 23:46] LABS: ARTERIAL BLOOD GAS ART SITE LEFT BRACHIAL; ARTERIAL BLOOD GAS DELIVERY NASAL CANNULA; ARTERIAL DRAW? YES
[2017-04-17 06:09] LABS: BUN/CREATININE RATIO 15.5; CALCIUM SERUM 7.7 mg/dL (8.4-10.2); GLOM FILT RATE Estimated 28.6 mL/min (>60); MAGNESIUM 1.5 mg/dL (1.6-3.0); PHOSPHOROUS 3.3 mg/dL (2.5-4.6); POTASSIUM 3.5 mmol/L (3.5-5.1)
[2017-04-17 10:05] LABS: ARTERIAL BLOOD GAS HCO3 4.1 mmol/L; ARTERIAL BLOOD GAS PCO2 21.7 mmHg (35.0-45.0); ARTERIAL BLOOD GAS PO2 51.3 mmHg (80.0-100); ARTERIAL BLOOD GAS pH 6.884 (7.350-7.450)
[2017-04-17 10:06] LABS: ARTERIAL BLOOD GAS CARBOXY HB 1.4 %sat (0.0-9.0); ARTERIAL BLOOD GAS DELIVERY ROOM AIR; ARTERIAL BLOOD GAS MET HB 1.2 %sat (0.0-2.0); ARTERIAL DRAW? NO
[2017-04-17 11:52] LABS: ALBUMIN SERUM 2.6 g/dL (3.5-5.0); BILIRUBIN,TOTAL 0.3 mg/dL (0.2-2.0); BUN/CREATININE RATIO 13.68; CALCIUM SERUM 7.8 mg/dL (8.4-10.2); CREATININE SERUM 1.9 mg/dL (0.6-1.4); GLOM FILT RATE Estimated 30.4 mL/min (>60); POTASSIUM 3.6 mmol/L (3.5-5.1); PROTEIN TOTAL SERUM 5.3 g/dL (6.0-8.3)
[2017-04-17 16:26] LABS: BASOPHIL% 0.4 % (0-2.5); EOSINOPHIL% 0.3 % (0.0-7.0); HEMATOCRIT 29.1 % (35.0-45.0); LYMPHOCYTE# 1.5 X10e3 (1.0-3.5); LYMPHOCYTE% 19.8 % (17.0-45.0); MEAN CORPUSCULAR HGB CONC 32.9 g/dL (30-36); MEAN PLATELET VOLUME 7.8 FL (6.5-11.5); MONOCYTE# 0.5 X10e3 (0-1.0); MONOCYTE% 6.1 % (3.0-12.0); NEUTROPHIL# 5.7 X10e3 (1.5-7.1); NEUTROPHIL% 73.4 % (40-75); RED BLOOD COUNT 3.09 X10e (3.90-5.30); RED CELL DISTRIBUTION WIDTH 16.1 % (11.0-15.5)
[2017-04-17 16:28] LABS: HEMOGLOBIN 9.6 gm/dL (12.0-16.0); MEAN CELL VOLUME 94.3 FL (83-96); WHITE BLOOD COUNT 7.8 X10e3 (4.0-10.5)
[2017-04-17 16:29] LABS: PLATELET COUNT 214 X10e3 (140-420)
[2017-04-17 16:32] LABS: DIFF IND NO
[2017-04-17 17:00] LABS: BUN/CREATININE RATIO 13.52; CALCIUM SERUM 7.9 mg/dL (8.4-10.2); CREATININE SERUM 1.7 mg/dL (0.6-1.4); GLOM FILT RATE Estimated 34.8 mL/min (>60); PHOSPHOROUS 3.1 mg/dL (2.5-4.6); POTASSIUM 3.5 mmol/L (3.5-5.1)
[2017-04-17 18:05] LABS: ALBUMIN SERUM 2.7 g/dL (3.5-5.0); BILIRUBIN,TOTAL 0.9 mg/dL (0.2-2.0); BUN/CREATININE RATIO 14.37; CREATININE SERUM 1.6 mg/dL (0.6-1.4); GLOM FILT RATE Estimated 37.5 mL/min (>60); POTASSIUM 3.4 mmol/L (3.5-5.1); PROTEIN TOTAL SERUM 5.3 g/dL (6.0-8.3)
[2017-04-17 23:10] LABS: BUN/CREATININE RATIO 12.14; CALCIUM SERUM 7.7 mg/dL (8.4-10.2); CREATININE SERUM 1.4 mg/dL (0.6-1.4); POTASSIUM 3.1 mmol/L (3.5-5.1)
[2017-04-18 05:25] LABS: BASOPHIL% 0.5 % (0-2.5); EOSINOPHIL% 0.3 % (0.0-7.0); HEMATOCRIT 29.9 % (35.0-45.0); HEMOGLOBIN 9.6 gm/dL (12.0-16.0); LYMPHOCYTE# 1.1 X10e3 (1.0-3.5); LYMPHOCYTE% 25.7 % (17.0-45.0); MEAN CELL VOLUME 95.2 FL (83-96); MEAN CORPUSCULAR HEMOGLOBIN 30.7 PG (28-34); MEAN CORPUSCULAR HGB CONC 32.3 g/dL (30-36); MEAN PLATELET VOLUME 8.1 FL (6.5-11.5); MONOCYTE# 0.2 X10e3 (0-1.0); MONOCYTE% 4.4 % (3.0-12.0); NEUTROPHIL% 69.1 % (40-75); PLATELET COUNT 196 X10e3 (140-420); RED BLOOD COUNT 3.14 X10e (3.90-5.30); RED CELL DISTRIBUTION WIDTH 16.2 % (11.0-15.5); WHITE BLOOD COUNT 4.3 X10e3 (4.0-10.5)
[2017-04-18 05:53] LABS: DIFF IND NO
[2017-04-18 06:31] LABS: ALBUMIN SERUM 2.4 g/dL (3.5-5.0); BILIRUBIN,TOTAL 0.7 mg/dL (0.2-2.0); BUN/CREATININE RATIO 11.66; CALCIUM SERUM 7.6 mg/dL (8.4-10.2); CREATININE SERUM 1.2 mg/dL (0.6-1.4); MAGNESIUM 1.8 mg/dL (1.6-3.0); PHOSPHOROUS 2.5 mg/dL (2.5-4.6); PROTEIN TOTAL SERUM 5.2 g/dL (6.0-8.3)
[2017-04-18 06:32] LABS: POTASSIUM 2.7 mmol/L (3.5-5.1)
[2017-04-18 19:00] LABS: MAGNESIUM 2.3 mg/dL (1.6-3.0); POTASSIUM 3.6 mmol/L (3.5-5.1)
[2017-04-19 05:19] LABS: BASOPHIL% 0.7 % (0-2.5); EOSINOPHIL% 0.2 % (0.0-7.0); HEMOGLOBIN 8.7 gm/dL (12.0-16.0); LYMPHOCYTE# 1.3 X10e3 (1.0-3.5); LYMPHOCYTE% 29.1 % (17.0-45.0); MEAN CELL VOLUME 95.8 FL (83-96); MEAN CORPUSCULAR HGB CONC 32.3 g/dL (30-36); MEAN PLATELET VOLUME 8.6 FL (6.5-11.5); MONOCYTE# 0.2 X10e3 (0-1.0); PLATELET COUNT 154 X10e3 (140-420); RED BLOOD COUNT 2.82 X10e (3.90-5.30); RED CELL DISTRIBUTION WIDTH 16.5 % (11.0-15.5); WHITE BLOOD COUNT 4.6 X10e3 (4.0-10.5)
[2017-04-19 05:30] LABS: DIFF IND NO
[2017-04-19 05:49] LABS: ALBUMIN SERUM 2.2 g/dL (3.5-5.0); BILIRUBIN,TOTAL 0.3 mg/dL (0.2-2.0); CALCIUM SERUM 7.4 mg/dL (8.4-10.2); GLOM FILT RATE Estimated 66.1 mL/min (>60); MAGNESIUM 1.8 mg/dL (1.6-3.0); PHOSPHOROUS 1.5 mg/dL (2.5-4.6); POTASSIUM 4.1 mmol/L (3.5-5.1); PROTEIN TOTAL SERUM 4.7 g/dL (6.0-8.3)
[2017-04-19 15:16] LABS: HA AB IGM (HEPPAN) Nonreactive (()); HB CORE AB IGM (HEPPAN) Nonreactive (Nonreactive); HB S AG (HEPPAN) Nonreactive (Nonreactive); HEP C AB (HEPPAN) Nonreactive (Nonreactive); HEP C AB SIGNAL TO CUTOFF 0.01 ratio (<1.00)
[2017-04-20 05:20] LABS: BASOPHIL% 0.8 % (0-2.5); EOSINOPHIL% 0.3 % (0.0-7.0); HEMATOCRIT 26.8 % (35.0-45.0); HEMOGLOBIN 8.7 gm/dL (12.0-16.0); LYMPHOCYTE# 1.4 X10e3 (1.0-3.5); LYMPHOCYTE% 38.1 % (17.0-45.0); MEAN CELL VOLUME 94.6 FL (83-96); MEAN CORPUSCULAR HEMOGLOBIN 30.8 PG (28-34); MEAN CORPUSCULAR HGB CONC 32.6 g/dL (30-36); MEAN PLATELET VOLUME 8.4 FL (6.5-11.5); MONOCYTE# 0.3 X10e3 (0-1.0); MONOCYTE% 7.1 % (3.0-12.0); NEUTROPHIL% 53.7 % (40-75); PLATELET COUNT 152 X10e3 (140-420); RED BLOOD COUNT 2.83 X10e (3.90-5.30); RED CELL DISTRIBUTION WIDTH 16.3 % (11.0-15.5); WHITE BLOOD COUNT 3.7 X10e3 (4.0-10.5)
[2017-04-20 05:36] LABS: DIFF IND NO
[2017-04-20 07:42] LABS: ALBUMIN SERUM 2.5 g/dL (3.5-5.0); ALKALINE PHOSPHATASE 171 U/L (32-92); ALT (SGPT) 87 U/L (10-40); AST (SGOT) 102 U/L (10-42); BILIRUBIN,TOTAL 0.6 mg/dL (0.2-2.0); BLOOD UREA NITROGEN 7 mg/dL (9-23); BUN/CREATININE RATIO 8.75; CALCIUM SERUM 7.9 mg/dL (8.4-10.2); CARBON DIOXIDE 25 mmol/L (22-31); CHLORIDE 108 mmol/L (100-111); CHOLESTEROL 162 mg/dL (0-200); CREATININE SERUM 0.8 mg/dL (0.6-1.4); GLOM FILT RATE Estimated 86.6 mL/min (>60); GLUCOSE FASTING 176 mg/dL (70-110); HDL CHOLESTEROL 41 mg/dL (35-95); LDL CHOLESTEROL 70 mg/dL (-130); LDL/HDL RATIO 2 RATIO (0-4); POTASSIUM 4.1 mmol/L (3.5-5.1); PROTEIN TOTAL SERUM 4.8 g/dL (6.0-8.3); SODIUM 139 mmol/L (135-145); TRIGLYCERIDES 254 mg/dL (10-160)
[2017-04-20 07:43] LABS: AMYLASE <7 U/L (0-46)
[2017-04-21 05:54] LABS: HEMATOCRIT 26.8 % (35.0-45.0); HEMOGLOBIN 8.6 gm/dL (12.0-16.0); MEAN CELL VOLUME 95.3 FL (83-96); MEAN CORPUSCULAR HEMOGLOBIN 30.6 PG (28-34); MEAN CORPUSCULAR HGB CONC 32.2 g/dL (30-36); MEAN PLATELET VOLUME 8.4 FL (6.5-11.5); RED BLOOD COUNT 2.82 X10e (3.90-5.30); RED CELL DISTRIBUTION WIDTH 16.7 % (11.0-15.5); WHITE BLOOD COUNT 5.1 X10e3 (4.0-10.5)
[2017-04-21 07:22] LABS: ALBUMIN SERUM 2.5 g/dL (3.5-5.0); BILIRUBIN,TOTAL 0.5 mg/dL (0.2-2.0); BUN/CREATININE RATIO 13.75; CREATININE SERUM 0.8 mg/dL (0.6-1.4); GLOM FILT RATE Estimated 86.6 mL/min (>60); MAGNESIUM 1.7 mg/dL (1.6-3.0); POTASSIUM 4.3 mmol/L (3.5-5.1); PROTEIN TOTAL SERUM 5.1 g/dL (6.0-8.3)
[2017-04-22 08:56] LABS: BUN/CREATININE RATIO 17.5; CALCIUM SERUM 8.7 mg/dL (8.4-10.2); CREATININE SERUM 0.8 mg/dL (0.6-1.4); GLOM FILT RATE Estimated 86.6 mL/min (>60); MAGNESIUM 1.7 mg/dL (1.6-3.0); PHOSPHOROUS 3.5 mg/dL (2.5-4.6)
[2017-04-22] MEDS ORDERED: LEVEMIR SUBQ (14:47)
[2017-04-22] MEDS ORDERED: NOVOLOG100 UNITS/ SUBQ ×3 (14:49→14:50)
[2017-04-22] MEDS ORDERED: FLAGYL PO (14:50)
[2017-04-22] MEDS ORDERED: COMBIVENT RESPIM4 GM INH (14:52)
[2017-04-22] MEDS ORDERED: SYMBICORT INH (14:53)
== END 2017-04-22 18:15 | disposition home or self-care (01) | DRG 871 ==
LOC: CED 16:31 → C3A PCU 19:45 → CEDOF 19:45 → CED 20:05 → CICCU2 04-17 01:46 → CEDOF 04-17 01:46 → CICCU2 04-17 09:38 → C3A PCU 04-18 11:53
PROVIDERS: Emergency Medicine; Internal Medicine; Internal Medicine Endocrinology, Diabetes & Metabolism; Internal Medicine Nephrology; Internal Medicine Pulmonary Disease
PROC: 02HV33Z Insertion of Infusion Device into Superior Vena Cava, Percutaneous Approach (ICD-10-PCS; 2017-04-16)
PROC: B24BZZZ Ultrasonography of Heart with Aorta (ICD-10-PCS; 2017-04-17)
PROC: 0DBL8ZX Excision of Transverse Colon, Via Natural or Artificial Opening Endoscopic, Diagnostic (ICD-10-PCS; principal; 2017-04-20 11:23)
DX: A41.9 Sepsis, unspecified organism (principal); R65.21 Severe sepsis with septic shock; E10.10 Type 1 diabetes mellitus with ketoacidosis without coma; N17.9 Acute kidney failure, unspecified; A04.7 Enterocolitis due to Clostridium difficile; K92.1 Melena; Z79.4 Long term (current) use of insulin; E83.39 Other disorders of phosphorus metabolism; E83.42 Hypomagnesemia; J44.9 Chronic obstructive pulmonary disease, unspecified; I10 Essential (primary) hypertension; G89.4 Chronic pain syndrome; E78.5 Hyperlipidemia, unspecified; F32.9 Major depressive disorder, single episode, unspecified; Z91.19 Patient's noncompliance with other medical treatment and regimen; E87.5 Hyperkalemia; F17.210 Nicotine dependence, cigarettes, uncomplicated; R80.9 Proteinuria, unspecified; D64.9 Anemia, unspecified; K63.5 Polyp of colon; K64.8 Other hemorrhoids; I49.8 Other specified cardiac arrhythmias; R94.5 Abnormal results of liver function studies; K75.81 Nonalcoholic steatohepatitis (NASH); Z90.49 Acquired absence of other specified parts of digestive tract; Z88.2 Allergy status to sulfonamides; Z88.1 Allergy status to other antibiotic agents; Z88.8 Allergy status to other drugs, medicaments and biological substances; Z88.5 Allergy status to narcotic agent; Z86.718 Personal history of other venous thrombosis and embolism; Z83.6 Family history of other diseases of the respiratory system; Z83.3 Family history of diabetes mellitus
CPT/HCPCS: 36415; 36600; 71010; 76705; 80048; 80053; 80061; 80074; 80076; 80202; 81003; 82010; 82150; 82274; 82308; 82553; 82728; 82803; 82947; 82977; 83605; 83735; 84100; 84132; 84443; 84484; 84703; 85025; 85027; 87040; 87086; 87493; 88305; 93005; 93306; 94640; 94664; 94760; 96361; 96374; 96375; 99291; C9113; J0282; J0610; J0692; J0696; J1650; J1815; J2270; J2405; J2543; J3370; J3475

== ENCOUNTER 2017-05-27 18:35 | Emergency (ER) | payer OTHER ==
[~2017-05-27] VITALS: Ht 180.3 cm; Wt 99.8 kg
--- NOTE | ~2017-05-27 | CR219 ---
[facility] A Service of [facility] & [facility] RADIOLOGY TEXT RESULTS PATIENT: SUHAS YOUNGBLOOD LOCATION: [facility] : 69 UNIT #: [id number] AGE: [address]: STEFAN HIGUERA APRN SEX: F ORDER DR: [id number] [facility] [address] [place], [place] [address] [id number] E MR#: [id number] Acc #: [id number] NAME: SUHAS YOUNGBLOOD. : 1965 SEX: F STUDY DATE/TIME: 05/27/2017 20:12 UNIT: [facility] ROOM: STUDY DESCRIPTION: CR Sacrum and Coccyx Min 2 Vie Attending Physician: Stefan Higuera Aprn Ordering Physician: Stefan Higuera Aprn Primary Care Physician: Generic Doctor Not In System MEDICAL IMAGING REPORT This report is preliminary unless electronic signature is present EXAM Sacral and coccygeal spine series, 05/27/2017 COMPARISON Lumbar spine series, 05/27/2017 HISTORY Patient fell today with pain in tailbone and in the lower back. FINDINGS Four images of three views of the sacrococcygeal spine was obtained. No acute displaced fracture or subluxation is seen. Mild sclerotic bony changes are noted in bilateral SI joints which could be related to minimal arthritic change particularly in the left side. There are postoperative surgical dwayne in the pelvis soft tissues on either side suggestive of tubal ligation. Correlate with history. Mild sclerotic changes in the pubic symphysis is also noted suggestive of arthritic change. Dictated by... Mague Crowe M.D. THIS IS AN ELECTRONICALLY VERIFIED REPORT Mague Crowe M.D. at 05/28/2017 9:17 PM CPR/sammy TD: 05/28/2017 20:37 JOB #: [id number] MEDICAL IMAGING REPORT Page 1 of 1 COPY
--- NOTE | ~2017-05-27 | CR181 ---
[facility] A Service of [facility] RADIOLOGY TEXT RESULTS PATIENT: SUHAS YOUNGBLOOD LOCATION: [facility] : 69 UNIT #: [id number] AGE: [address]: STEFAN HIGUERA APRN SEX: F ORDER DR: [id number] [facility] [address] [place], [place] [address] [id number] E MR#: [id number] Acc #: [id number] NAME: SUHAS YOUNGBLOOD. : 1965 SEX: F STUDY DATE/TIME: 05/27/2017 20:12 UNIT: [facility] ROOM: STUDY DESCRIPTION: CR Lumbar Spine 2 or 3 Views Attending Physician: Stefan Higuera Aprn Ordering Physician: Stefan Higuera Aprn Primary Care Physician: Funmi Not Listed MEDICAL IMAGING REPORT This report is preliminary unless electronic signature is present EXAM Lumbar spine series dated 05/27/2017. COMPARISON CT abdomen and pelvis without contrast dated 02/21/2017. No prior dedicated lumbar spine studies are available. HISTORY Patient fell today with low-back pain and tailbone pain. FINDINGS Three views of the lumbar spine were obtained. Bilateral L4 pars defects are present with minimal anterolisthesis of L4 with respect to L3. No acute displaced fracture. Pedicles and spinous processes are intact. Surgical dwayne noted in the right side of the abdomen and in the pelvis. IMPRESSION 1. No acute fracture. 2. Bilateral L4 pars defects with minimal anterolisthesis of L4 with respect to L3. Stable. 3. No acute abnormality. Dictated by... Mague Crowe M.D. THIS IS AN ELECTRONICALLY VERIFIED REPORT Mague Crowe M.D. at 05/28/2017 9:17 PM CPR/tmw TD: 05/28/2017 20:37 [facility] A Service of [facility] RADIOLOGY TEXT RESULTS PATIENT: SUHAS YOUNGBLOOD LOCATION: [facility] : 69 UNIT #: [id number] AGE: [address]: STEFAN HIGUERA APRN SEX: F ORDER DR: JOB #: [id number] MEDICAL IMAGING REPORT Page 1 of 1 COPY
--- NOTE | ~2017-05-27 | CR58 ---
[facility] A Service of [facility] & [facility] RADIOLOGY TEXT RESULTS PATIENT: SUHAS YOUNGBLOOD LOCATION: [facility] : 69 UNIT #: [id number] AGE: [address]: STEFAN HIGUERA APRN SEX: F ORDER DR: [id number] [facility] [address] [place], [place] [address] [id number] E MR#: [id number] Acc #: [id number] NAME: SUHAS YOUNGBLOOD. : 1965 SEX: F STUDY DATE/TIME: 05/27/2017 20:11 UNIT: [facility] ROOM: STUDY DESCRIPTION: CR Cervical Spine 2 or 3 Views Attending Physician: Stefan Higuera Aprn Ordering Physician: Stefan Higuera Aprn Primary Care Physician: Generic Doctor Not In System MEDICAL IMAGING REPORT This report is preliminary unless electronic signature is present EXAM Cervical spine series, 05/27/2017 COMPARISON None HISTORY Patient has tingling and shooting pain going down both legs, more on the right than left. Patient fell today. Low back pain and tailbone pain. FINDINGS Five views of the cervical spine were obtained. Frontal, lateral, swimmer's, open mouth C1-2 and odontoid views were obtained. No acute displaced fracture or subluxation. 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 There is straightening of normal cervical curvature. Dictated by... Mague Crowe M.D. THIS IS AN ELECTRONICALLY VERIFIED REPORT Mague Crowe M.D. at 05/28/2017 9:17 PM CPR/sammy TD: 05/28/2017 20:33 JOB #: [id number] MEDICAL IMAGING REPORT Page 1 of 1 COPY
[~2017-05-27 18:35] MED LIST changes: +COMBIVENT RESPIM4 GM INH; +FLAGYL PO
== END 2017-05-27 21:20 | disposition home or self-care (01) ==
LOC: CFTX 18:35 → CED 18:35 → CFTX 19:37
DX: S13.4XXA Sprain of ligaments of cervical spine, initial encounter (principal); S33.5XXA Sprain of ligaments of lumbar spine, initial encounter; S80.12XA Contusion of left lower leg, initial encounter; S80.11XA Contusion of right lower leg, initial encounter; I10 Essential (primary) hypertension; E11.9 Type 2 diabetes mellitus without complications; J44.9 Chronic obstructive pulmonary disease, unspecified; E78.5 Hyperlipidemia, unspecified; Z86.73 Personal history of transient ischemic attack (TIA), and cerebral infarction without residual deficits; Z88.2 Allergy status to sulfonamides; Z88.1 Allergy status to other antibiotic agents; Z88.8 Allergy status to other drugs, medicaments and biological substances; W01.0XXA Fall on same level from slipping, tripping and stumbling without subsequent striking against object, initial encounter; Y92.89 Other specified places as the place of occurrence of the external cause
CPT/HCPCS: 72040; 72100; 72220; 99283